=== PATIENT | male | born 1985 | race Caucasian/White ===

== ENCOUNTER 2023-07-17 15:39 | Inpatient (IN) ==
[2023-07-17] MEDS ORDERED: VANCOMYCIN HCL 1,500 MG in SODIUM CHLORIDE 0.9% 500 ML IV STA (16:08)
[2023-07-17] MEDS ORDERED: VANCOMYCIN CONSULT ACTIVE PRN (16:08)
[2023-07-17] MEDS ORDERED: SODIUM CHLORIDE 0.9% 1,000 ML IV STA (16:08)
[2023-07-17] MEDS ORDERED: CEFEPIME 2,000 MG/20 ML VIAL IV STA (16:08)
--- NOTE | 2023-07-17 16:12 | Emergency Department Note ---
Impression & Plan Infection of left hand, Abscess of hand, left, Cellulitis of hand, left ED Provider Note NAME: EMILIA ALVAREZ AGE: 38 SEX: M : 1985 ARRIVES VIA: Walk-In INFORMANT: Patient, ED PROVIDER(S): Luis Armando Ortiz DO CHIEF COMPLAINT: Hand swelling HPI: The patient is a 38-year-old male who presented to the emergency department for an evaluation of hand swelling. He had symptoms for approximately 2 weeks. He has been seen at multiple emergency departments. He has had multiple changes to his antibiotic regimen. The patient states that he was recently seen at another ER and they were trying to admit him to hospital in [place] however he was told it may take up to a week for him to get that bed so he left there and decided to come here today. He describes the swelling as between the fourth and fifth digit on the left hand. He does work with cement. Initially this started off as a callus and then ruptured and then he started having swelling and pain after this. He did have an I&D of the area yesterday. ROS: See above HPI for pertinent positives & negatives. A total of 10 systems reviewed and were otherwise negative. PAST MEDICAL HISTORY: See Below PAST SURGICAL HISTORY: See Below FAMILY HISTORY: See Below SOCIAL HISTORY: See Below HOME MEDICATIONS: See Below ALLERGIES: See Below VITALS: See Below PHYSICAL EXAMINATION: GENERAL: Patient is awake alert in no acute distress patient is resting comfortably and showing no signs of anxiety EYES: The conjunctivae are clear. The pupils are round and reactive. EARS, NOSE, MOUTH AND THROAT: The nose is without any evidence of any deformity. NECK: The neck is nontender and supple. RESPIRATORY: Normal respiratory effort is noted there is no evidence of wheezing rhonchi or rales CARDIOVASCULAR: Regular rate and rhythm noted there no murmurs rubs or gallops normal S1 normal S2. GASTROINTESTINAL: The abdomen is soft. Abdomen is nontender. MUSCULOSKELETAL/EXTREMITIES: There is no evidence of gross deformity full range of motion is noted in the hips and shoulders. SKIN: There is swelling on both the dorsum and the palmar aspect of the left hand. Range of motion of the fourth and fifth digits did appear to be limited secondary to pain. There was an area between the fourth and fifth digit that was recently incised. No drainage was noted. NEUROLOGIC: Patient is awake alert and oriented x3 MEDICAL DECISION MAKING: The patient is a 38-year-old male who presented to the emergency department for an evaluation of hand infection. The patient started having problems with swelling and redness of his hand over the course last few weeks. The patient was seen in other outside facilities no specific diagnosis was initially made but the patient was started on antibiotics. Most recently he was seen in a different facility and diagnosed with an abscess. He had an incision and drainage in the emergency department. He was scheduled to be transferred to a different facility but no bed became available so the patient left and came to our facility today. I discussed the patient's laboratory and radiographic studies with him. I also discussed his condition with the on-call [facility] ospitalist as well as the on-call orthopedic physician. They have agreed to evaluate the patient in the emergency department for further management and disposition. The patient was treated with IV antibiotics in emergency department. Triage Nursing notes reviewed. Prior medical records reviewed Vital Signs: reviewed and remarkable for elevated blood pressure. Differential diagnosis: Cellulitis, abscess, MRSA infection, DVT, necrotizing fasciitis, dermatitis, drug eruption, allergic reaction, as well as other pathologies. ER treatment provided: See below Diagnostics interpreted by me: ECG: none Cardiac Monitoring: An order was placed for continuous cardiac monitoring. The monitor shows a rate of 55 bpm with sinus bradycardia. Laboratory studies: As stated above and show below. Imaging studies: See below. Radiographic imaging was reviewed by myself Consultation(s): I discussed this case with Dr Harris who was on for orthopaedics I discussed this case with Dr Westfall who was on for the [facility] hospitalist group. Past Med/Surg History Social History Smoking Status: Current every day smoker Tobacco Type: Cigarettes Cigarettes Per Day: 1.5 pack a day.; Second Hand Exposure: No; Do You Dip or Chew Tobacco: No; Tobacco Cessation Education Requested by Patient: No Hx Alcohol Use: No Hx Substance Use: No Preferred Language: Egyptian Communication Ability: Effective Central Sterilization Technician Required: No Beliefs That Will Affect Care: None Current Living Situation: Family Current Living Situation Comment: Fiance and Kids. Other Information That Helps Us Care for You: No Feels Safe at Home: Yes Safety Concerns: Feels Safe At This Time Assistive Devices: None Allergies Allergies Allergy/AdvReac Type Severity Reaction Status Date / Time Bee Allergy Swelling Uncoded 07/17/23 16:17 of Lip/Tongue/Throat Home Meds Home Medications Medication Instructions Recorded Confirmed buprenorphine 4 mg-naloxone 1 mg 1 film sublingual . QMIDDAY 07/17/23 07/17/23 sublingual film buprenorphine 8 mg-naloxone 2 mg 1 film sublingual AMHS 07/17/23 07/17/23 sublingual film clindamycin HCl 300 mg capsule 300 mg PO TID 07/17/23 07/17/23 cyclobenzaprine 5 mg tablet 5 mg PO HS PRN Migraine Headache 07/17/23 07/17/23 doxycycline hyclate 100 mg capsule 100 mg PO BID 07/17/23 07/17/23 levofloxacin 500 mg tablet See Rx Instructions .Route .COMPLEX 07/17/23 07/17/23 pantoprazole 40 mg tablet,delayed 40 mg PO BID 07/17/23 07/17/23 release sumatriptan succinate 100 mg tablet 100 mg PO DAILY PRN Migraine 07/17/23 07/17/23 Headache topiramate 100 mg tablet 100 mg PO BID 07/17/23 07/17/23 Results & Data (ED) Vital Signs Vital Signs - 24 hr 07/17/23 15:42 07/17/23 16:55 07/17/23 18:11 Temperature 36.8 C Temperature Source Temporal Artery Scan Pulse Rate 65 82 Pulse Rate [Apical] 64 Pulse Rate from SpO2 Sensor Pulse Rhythm [Apical] Regular Respiratory Rate 16 17 Respiratory Effort / Characteristics Non-Labored Spontaneous Respiratory Depth Normal Respiratory Pattern Blood Pressure 158/88 H Blood Pressure [Right Arm] 132/83 Blood Pressure Mean 111 Blood Pressure Mean [Right Arm] 99 Blood Pressure Position [Right Arm] Semi-fowlers Pulse Oximetry 100 99 Oxygen Delivery Method Room Air Room Air Sepsis Recent Fever Within 48 Hours No Sepsis New/Unexplained Change in Mental Status N/A Sepsis Action Taken by Nursing No Action Required 07/17/23 16:54 07/17/23 17:00 07/17/23 18:05 Temperature Temperature Source Pulse Rate 70 72 68 Pulse Rate [Apical] Pulse Rate from SpO2 Sensor 70 74 67 Pulse Rhythm [Apical] Respiratory Rate 19 20 15 Respiratory Effort / Characteristics Respiratory Depth Respiratory Pattern Blood Pressure Blood Pressure [Right Arm] Blood Pressure Mean Blood Pressure Mean [Right Arm] Blood Pressure Position [Right Arm] Pulse Oximetry 100 100 99 Oxygen Delivery Method Sepsis Recent Fever Within 48 Hours Sepsis New/Unexplained Change in Mental Status Sepsis Action Taken by Nursing 07/17/23 18:13 07/17/23 18:13 07/17/23 18:16 Temperature Temperature Source Pulse Rate 68 Pulse Rate [Apical] Pulse Rate from SpO2 Sensor 66 Pulse Rhythm [Apical] Respiratory Rate 21 Respiratory Effort / Characteristics Respiratory Depth Respiratory Pattern Blood Pressure 132/83 Blood Pressure [Right Arm] Blood Pressure Mean 88 81 Blood Pressure Mean [Right Arm] Blood Pressure Position [Right Arm] Pulse Oximetry 99 Oxygen Delivery Method Sepsis Recent Fever Within 48 Hours Sepsis New/Unexplained Change in Mental Status Sepsis Action Taken by Nursing 07/17/23 18:16 07/17/23 18:30 07/17/23 18:30 Temperature Temperature Source Pulse Rate 70 60 Pulse Rate [Apical] Pulse Rate from SpO2 Sensor 71 62 Pulse Rhythm [Apical] Respiratory Rate 16 17 Respiratory Effort / Characteristics Respiratory Depth Respiratory Pattern Blood Pressure 140/93 Blood Pressure [Right Arm] Blood Pressure Mean 112 Blood Pressure Mean [Right Arm] Blood Pressure Position [Right Arm] Pulse Oximetry 100 100 Oxygen Delivery Method Sepsis Recent Fever Within 48 Hours Sepsis New/Unexplained Change in Mental Status Sepsis Action Taken by Nursing 07/17/23 18:45 07/17/23 19:00 07/17/23 20:00 Temperature Temperature Source Pulse Rate 58 L 59 L Pulse Rate [Apical] Pulse Rate from SpO2 Sensor 54 L 59 L Pulse Rhythm [Apical] Regular Respiratory Rate 16 16 Respiratory Effort / Characteristics Non-Labored Respiratory Depth Normal Respiratory Pattern Regular Blood Pressure 128/85 135/75 Blood Pressure [Right Arm] Blood Pressure Mean 99 95 Blood Pressure Mean [Right Arm] Blood Pressure Position [Right Arm] Pulse Oximetry 100 100 Oxygen Delivery Method Room Air Room Air Room Air Sepsis Recent Fever Within 48 Hours Sepsis New/Unexplained Change in Mental Status Sepsis Action Taken by Nursing 07/17/23 19:30 07/17/23 20:00 Temperature Temperature Source Pulse Rate 67 59 L Pulse Rate [Apical] Pulse Rate from SpO2 Sensor 63 60 Pulse Rhythm [Apical] Respiratory Rate 15 16 Respiratory Effort / Characteristics Respiratory Depth Respiratory Pattern Blood Pressure 145/83 H 131/80 Blood Pressure [Right Arm] Blood Pressure Mean 103 97 Blood Pressure Mean [Right Arm] Blood Pressure Position [Right Arm] Pulse Oximetry 97 99 Oxygen Delivery Method Room Air Room Air Sepsis Recent Fever Within 48 Hours Sepsis New/Unexplained Change in Mental Status Sepsis Action Taken by Half-Way Medications Current Medication List: was personally reviewed by me Laboratory Data Attestation: I reviewed the patient's lab results. 07/17/23 16:24 07/17/23 16:24 Lab Results 07/17/23 07/17/23 07/17/23 Range/Units 16:24 16:24 16:24 WBC 18.73 H (4.8-10.8) K/ul RBC 4.39 L (4.70-6.10) M/uL Hgb 13.9 L (14.0-18.0) g/dl Hct 39.8 L (42.0-52.0) % MCV 90.7 (80.0-100.0) fL MCH 31.7 (25.0-34.0) pg MCHC 34.9 (32.0-36.0) g/dL RDW Std Deviation 43.8 (36.4-46.3) fL RDW Coeff of Yadira 13.2 (11.5-14.5) % Plt Count 439 H (130-400) K/uL MPV 9.3 L (9.4-12.4) fL Immature Gran % (Auto) 0.3 % Neut % (Auto) 56.7 % Lymph % (Auto) 33.7 % Schoolcraft % (Auto) 6.9 % Eos % (Auto) 2.0 % Baso % (Auto) 0.4 % Neut # (Auto) 10.62 H (1.40-6.50) K/uL Lymph # (Auto) 6.31 H (1.20-3.40) K/uL Schoolcraft # (Auto) 1.30 H (0.11-0.59) K/uL Eos # (Auto) 0.37 (0.00-0.50) K/uL Baso # (Auto) 0.08 (0.00-0.20) K/uL Immature Gran # (Auto) 0.05 (0.01-0.20) K/uL ESR 44 H (0-15) mm/hr Sodium 139 (136-145) mmol/L Potassium 3.5 (3.5-5.1) mmol/L Chloride 106 (98-107) mmol/L Carbon Dioxide 28 (21-32) mmol/L Anion Gap 5 (3-11) BUN 9 (6-23) mg/dl Creatinine 0.82 (0.6-1.4) mg/dl Est Cr Clr Drug Dosing 99.4 ml/min Est GFR ( Amer) 129.1 ml/min Est GFR (Non-Af Amer) 111.4 ml/min BUN/Creatinine Ratio 11.0 (10-20) Glucose 90 (70-99(Fasting)) mg/dl Lactate (0.4-2.0) mmol/L Calcium 9.7 (8.6-10.3) mg/dl Total Bilirubin 0.4 (0.2-1.0) mg/dl AST 25 (13-39) U/L ALT 19 (7-52) U/L Alkaline Phosphatase 97 (34-104) U/L C-Reactive Protein 8.38 H (0-0.5) mg/dl Total Protein 7.7 (6.0-8.3) gm/dl Albumin 4.2 (3.4-5.0) gm/dl Globulin 3.5 (2.5-4.0) gm/dl Albumin/Globulin Ratio 1.2 (0.9-2) Procalcitonin (0-0.5) ng/ml 07/17/23 07/17/23 Range/Units 16:24 16:24 WBC (4.8-10.8) K/ul RBC (4.70-6.10) M/uL Hgb (14.0-18.0) g/dl Hct (42.0-52.0) % MCV (80.0-100.0) fL MCH (25.0-34.0) pg MCHC (32.0-36.0) g/dL RDW Std Deviation (36.4-46.3) fL RDW Coeff of Yadira (11.5-14.5) % Plt Count (130-400) K/uL MPV (9.4-12.4) fL Immature Gran % (Auto) % Neut % (Auto) % Lymph % (Auto) % School[place] % (Auto) % Eos % (Auto) % Baso % (Auto) % Neut # (Auto) (1.40-6.50) K/uL Lymph # (Auto) (1.20-3.40) K/uL Schoolcraft # (Auto) (0.11-0.59) K/uL Eos # (Auto) (0.00-0.50) K/uL Baso # (Auto) (0.00-0.20) K/uL Immature Gran # (Auto) (0.01-0.20) K/uL ESR (0-15) mm/hr Sodium (136-145) mmol/L Potassium (3.5-5.1) mmol/L Chloride (98-107) mmol/L Carbon Dioxide (21-32) mmol/L Anion Gap (3-11) BUN (6-23) mg/dl Creatinine (0.6-1.4) mg/dl Est Cr Clr Drug Dosing ml/min Est GFR ( Amer) ml/min Est GFR (Non-Af Amer) ml/min BUN/Creatinine Ratio (10-20) Glucose (70-99(Fasting)) mg/dl Lactate 1.1 (0.4-2.0) mmol/L Calcium (8.6-10.3) mg/dl Total Bilirubin (0.2-1.0) mg/dl AST (13-39) U/L ALT (7-52) U/L Alkaline Phosphatase (34-104) U/L C-Reactive Protein (0-0.5) mg/dl Total Protein (6.0-8.3) gm/dl Albumin (3.4-5.0) gm/dl Globulin (2.5-4.0) gm/dl Albumin/Globulin Ratio (0.9-2) Procalcitonin < 0.05 (0-0.5) ng/ml Administered Medications Buprenorphine/Naloxone (Buprenorphine/Naloxone 8/2 Mg Tab) 1 tab SL [facility]HS PETER Stop: 08/16/23 21:30 Last Admin: 07/17/23 22:04 Dose: 1 tab Documented By: JAMIE Sodium Chloride (Nss) 1,000 mls @ 125 mls/hr IV .Q8H PETER Stop: 08/16/23 21:30 Last Admin: 07/18/23 04:58 Dose: 125 mls/hr Documented By: Infusion: 07/18/23 04:58 Dose: 125 mls/hr Documented By: Admin: 07/17/23 21:31 Dose: 125 mls/hr Documented By: JAMIE Piperacillin Sod/Tazobactam (Sod 4.5 gm/ Dextrose) 100 mls @ 25 mls/hr IV Q8H [facility]; Protocol Stop: 07/25/23 03:59 Last Admin: 07/18/23 04:58 Dose: 25 mls/hr Documented By: JAMIE Vancomycin HCl 1,000 mg/ (Sodium Chloride) 270 mls @ 200 mls/hr IV Q12H PETER Stop: 07/20/23 05:59 Last Admin: 07/18/23 05:44 Dose: 200 mls/hr Documented By: JAMIE Ketorolac Tromethamine (Ketorolac Tromethamine 15 Mg/Ml Vial) 15 mg IV Q6H PRN PRN Reason: Pain Stop: 07/22/23 21:47 Last Admin: 07/18/23 04:59 Dose: 15 mg Documented By: Admin: 07/17/23 22:06 Dose: 15 mg Documented By: JAMIE Pantoprazole Sodium (Pantoprazole 40 Mg Tab) 40 mg PO BID PETER Stop: 08/16/23 21:30 Last Admin: 07/17/23 22:04 Dose: 40 mg Documented By: JAMIE Topiramate (Topiramate 100 Mg Tab) 100 mg PO BID PETER Stop: 08/16/23 21:30 Last Admin: 07/17/23 22:04 Dose: 100 mg Documented By: JAMIE Discontinued Medications Gadobutrol (Gadobutrol 65ml Vial) 5.8 ml IV ONCE ONE Stop: 07/17/23 17:47 Last Admin: 07/17/23 17:47 Dose: 5.8 ml Documented By: ADELE Vancomycin HCl 1,500 mg/ (Sodium Chloride) 530 mls @ 200 mls/hr IV NOW STA Stop: 07/17/23 18:46 Last Infusion: 07/17/23 20:44 Dose: 0 mls/hr Documented By: Admin: 07/17/23 18:04 Dose: 200 mls/hr Documented By: DARLENE Sodium Chloride (Nss) 1,000 mls @ 999 mls/hr IV .Q1H1M STA Stop: 07/17/23 17:08 Last Infusion: 07/17/23 17:37 Dose: 0 mls/hr Documented By: Admin: 07/17/23 16:24 Dose: 999 mls/hr Documented By: DARLENE Cefepime HCl (Maxipime) 2,000 mg in 20 mls @ 5 mls/min IV NOW STA; Protocol Stop: 07/17/23 16:11 Last Admin: 07/17/23 16:26 Dose: 5 mls/min Documented By: DARLENE Piperacillin Sod/Tazobactam (Sod 4.5 gm/ Dextrose) 100 mls @ 200 mls/hr IV NOW ONE; Protocol Stop: 07/17/23 22:44 Last Infusion: 07/17/23 22:57 Dose: 0 mls/hr Documented By: Admin: 07/17/23 22:25 Dose: 200 mls/hr Documented By: JAMIE Imaging Data Radiologist's Impression: Hand MRI 07/17/23 16:08 MRI OF THE LEFT HAND WITH AND WITHOUT CONTRAST CLINICAL HISTORY: Left hand swelling. Cellulitis. Recent I&D. COMPARISON STUDY: No previous studies for comparison. TECHNIQUE: Utilizing a 1.5 Maria Isabel magnet and dedicated coil, multiplanar, multiecho imaging of the left hand was performed pre and postcontrast administration. Intravenous injection of 5.8 cc of Gadavist was uneventful. FINDINGS: A marker was placed on the skin at site of pain and swelling. There is no marrow edema to suggest osteomyelitis within the left hand. Note is made of extensive dorsal hand subcutaneous edema and enhancement. This extends into the left third, fourth and fifth fingers consistent with cellulitis. Note is made of a elongated subcutaneous pocket of fluid with rim enhancement along the palmar aspects of the bases of the left third, fourth and fifth fingers. This collection measures 4 x 0.8 x 0.7 cm. A small component extends along the medial proximal left fourth finger. This component measures 1.5 x 0.3 cm. No additional fluid collections are present. No increased fluid within the tendon sheaths is noted. IMPRESSION: 1. Extensive subcutaneous edema of the dorsal left hand extending into the left third, fourth and fifth fingers consistent with cellulitis. No MR evidence for acute osteomyelitis within the left hand. 2. Elongated subcutaneous rim enhancing fluid collection along the palmar a spects of the bases of the left third, fourth and fifth fingers which measures 4 x 0.8 x 0.7 cm. Sterility cannot be assessed by MRI however this favors an abscess. Alternately, this could reflect recent I&D site. Correlation with procedural history is recommended. ACT 112: Negative or not required by law. Electronically signed by: Vincent Chan M.D. 07/17/2023 6:46 PM Orbit X-Ray 07/17/23 16:19 [facility] RADIOGRAPHS 3 VIEWS HISTORY: pre-MRI screening. COMPARISON: None. FINDINGS: There are no radiopaque foreign bodies identified within the orbits. IMPRESSION: No radiopaque foreign bodies identified within the orbits. ACT 112: Negative or not required by law. Electronically signed by: Vincent Chan M.D. 07/17/2023 5:01 PM Discharge Plan Visit Data Chief Complaint: Infection Stated Complaint: CELLULITIS LEFT HAND ED Provider: Luis Armando Ortiz Discharge Problem: Infection of left hand, Abscess of hand, left, Cellulitis of hand, left Patient Disposition: Admitted As Inpatient Discharge Instructions Interventions: ED Discharge Assessment Last Done: 07/17/23 21:13
[2023-07-17 16:42] LABS: Hematocrit (blood only) 39.8 % (42.0-52.0); Hemoglobin 13.9 g/dl (14.0-18.0); Mean Corpuscular Hemoglobin 31.7 pg (25.0-34.0); Mean Corpuscular Hgb Conc 34.9 g/dL (32.0-36.0); Mean Corpuscular Volume 90.7 fL (80.0-100.0); Mean Platelet Volume 9.3 fL (9.4-12.4); Platelet Count 439 K/uL (130-400); RDW Coefficient of Variation 13.2 % (11.5-14.5); RDW Standard Deviation 43.8 fL (36.4-46.3); Red Blood Count 4.39 M/uL (4.70-6.10); White Blood Count 18.73 K/ul (4.8-10.8)
[2023-07-17 16:58] LABS: Albumin Globulin Ratio 1.2 (0.9-2); Albumin Level 4.2 gm/dl (3.4-5.0); Bilirubin,Total 0.4 mg/dl (0.2-1.0); C Reactive Protein 8.38 mg/dl (0-0.5); Calcium 9.7 mg/dl (8.6-10.3); Creatinine Clr Calc Pharmacy 99.4 ml/min; Est GFR (African American) 129.1 ml/min; Est GFR (Non-African American) 111.4 ml/min; Globulin 3.5 gm/dl (2.5-4.0); Potassium 3.5 mmol/L (3.5-5.1); Total Protein 7.7 gm/dl (6.0-8.3)
--- NOTE | 2023-07-17 17:02 | XRay Report ---
[facility] RADIOGRAPHS 3 VIEWS HISTORY: pre-MRI screening. COMPARISON: None. FINDINGS: There are no radiopaque foreign bodies identified within the orbits. IMPRESSION: No radiopaque foreign bodies identified within the orbits. ACT 112: Negative or not required by law. Electronically signed by: Vincent Chan M.D. 07/17/2023 5:01 PM
[2023-07-17 17:04] LABS: Basophils # (auto) 0.08 K/uL (0.00-0.20); Basophils % (auto) 0.4 %; Eosinophils # (auto) 0.37 K/uL (0.00-0.50); Immature Granulocytes # (auto) 0.05 K/uL (0.01-0.20); Immature Granulocytes % (auto) 0.3 %; Lymphocytes # (auto) 6.31 K/uL (1.20-3.40); Lymphocytes % (auto) 33.7 %; Monocytes % (auto) 6.9 %; Neutrophils # (auto) 10.62 K/uL (1.40-6.50); Neutrophils % (auto) 56.7 %
[2023-07-17] MEDS ORDERED: GADOBUTROL 65ML VIAL IV ONE (17:46)
--- NOTE | 2023-07-17 18:49 | Magnetic Resonance Report ---
MRI OF THE LEFT HAND WITH AND WITHOUT CONTRAST CLINICAL HISTORY: Left hand swelling. Cellulitis. Recent I&D. COMPARISON STUDY: No previous studies for comparison. TECHNIQUE: Utilizing a 1.5 Maria Isabel magnet and dedicated coil, multiplanar, multiecho imaging of the lef t hand was performed pre and postcontrast administration. Intravenous injection of 5.8 cc of Gadavist was uneventful. FINDINGS: A marker was placed on the skin at site of pain and swelling. There is no marrow edema to s uggest osteomyelitis within the left hand. Note is made of extensive dorsal hand subcutaneous edema a nd enhancement. This extends into the left third, fourth and fifth fingers consistent with cellulitis . Note is made of a elongated subcutaneous pocket of fluid with rim enhancement along the palmar aspe cts of the bases of the left third, fourth and fifth fingers. This collection measures 4 x 0.8 x 0.7 cm. A small component extends along the medial proximal left fourth finger. This component measures 1 .5 x 0.3 cm. No additional fluid collections are present. No increased fluid within the tendon sheath s is noted. IMPRESSION: 1. Extensive subcutaneous edema of the dorsal left hand extending into the left third, fourth and fif th fingers consistent with cellulitis. No MR evidence for acute osteomyelitis within the left hand. 2. Elongated subcutaneous rim enhancing fluid collection along the palmar aspects of the bases of the left third, fourth and fifth fingers which measures 4 x 0.8 x 0.7 cm. Sterility cannot be assessed b y MRI however this favors an abscess. Alternately, this could reflect recent I&D site. Correlation wi procedural history is recommended. ACT 112: Negative or not required by law. Electronically signed by: Vincent Chan M.D. 07/17/2023 6:46 PM
--- NOTE | 2023-07-17 20:26 | History & Physical Report ---
Date of Service July 17, 2023 Assessment & Plan (1) Infection of left hand: Plan: 38-year-old male with past med significant for migraines, presents with left hand infection. Left hand infection Between ring and middle finger Failed outpatient treatment with the oral antibiotics Was lanced in outside hospital yesterday Empirically placed on IV Vanco and Zosyn IV fluids N.p.o. after midnight Consult Ortho in a.m. Migraines Continue home medications GERD Protonix Chronic pain Continue Suboxone DVT prophylaxis SCDs for now Disposition Medical floor Full code History of Present Illness Chief Complaint: Left hand infection Primary Care Provider: NO PCP 38-year-old male with past med significant for migraines, presents with left hand infection. Patient states 11 days ago at work his callus in his left hand between ring and little finger started to bleed. 3 days later he went to outpatient doctor and was prescribed Bactrim and advised to go to hospital if does not improve in 48 hours. It was not getting better and he went to ER and was prescribed different antibiotics and was advised the same. As he was not getting better he went to [facility] day before yesterday and prescribed clindamycin and a different antibiotic but by the next day which is yesterday the hand is swollen and painful so went to the same hospital last night and the wound was sliced and IV antibiotics and fluids were given. As there were no beds in the hospital he was advised to wait and see or go to a different hospital and he came to our hospital today. There is some slight drainage from the I&D site. Denies any fevers. Resting comfortably and hemodynamically stable. Denies any chest pain or shortness of breath. No headaches. No blurred visions. No earache or runny nose or sore throat. No cough. Appetite is okay. No nausea. Normal bowel and bladder movements. No hematuria or blood in the stools. Past medical history as mentioned above Past surgical history none as per patient Social history. Smokes 1 and half pack a day for about 20 years. Denies alcohol use. Used to take pain pills in the past currently on Suboxone. Family history. Mother had diabetes Allergies Allergy/AdvReac Type Severity Reaction Status Date / Time Bee Allergy Swelling Uncoded 07/17/23 16:17 of Lip/Tongue/Throat Home Medications Medication Instructions Recorded Confirmed Type buprenorphine 4 mg-naloxone 1 mg 1 film sublingual . QMIDDAY 07/17/23 07/17/23 History sublingual film buprenorphine 8 mg-naloxone 2 mg 1 film sublingual AMHS 07/17/23 07/17/23 History sublingual film clindamycin HCl 300 mg capsule 300 mg PO TID 07/17/23 07/17/23 History cyclobenzaprine 5 mg tablet 5 mg PO HS PRN Migraine Headache 07/17/23 07/17/23 History doxycycline hyclate 100 mg capsule 100 mg PO BID 07/17/23 07/17/23 History levofloxacin 500 mg tablet See Rx Instructions .Route .COMPLEX 07/17/23 07/17/23 History pantoprazole 40 mg tablet,delayed 40 mg PO BID 07/17/23 07/17/23 History release sumatriptan succinate 100 mg tablet 100 mg PO DAILY PRN Migraine 07/17/23 07/17/23 History Headache topiramate 100 mg tablet 100 mg PO BID 07/17/23 07/17/23 History Past Med/Surg History Social History Smoking Status: Current every day smoker Tobacco Type: Cigarettes Cigarettes Per Day: 1.5 pack a day.; Second Hand Exposure: No; Do You Dip or Chew Tobacco: No; Tobacco Cessation Education Requested by Patient: No Hx Alcohol Use: No Hx Substance Use: No Preferred Language: Greek Communication Ability: Effective Student Advisor Required: No Beliefs That Will Affect Care: None Current Living Situation: Family Current Living Situation Comment: Fiance and Kids. Other Information That Helps Us Care for You: No Feels Safe at Home: Yes Safety Concerns: Feels Safe At This Time Assistive Devices: None Review of Systems Review of Systems: All systems reviewed & are unremarkable except as noted in HPI & below Physical Exam Physical Exam: General- Not in distress Head- atraumatic Eyes- PERRL. ENT- oropharynx clear Neck- supple, no JVD. Lungs- clear to auscultation, No wheezing or crackles Heart- regular rate and rhythm; no murmur, no gallop. Abdomen- normal bowel sounds, soft, nontender, no distension. Extremities- no pretibial edema, seling and open wound with mild serosanguineous drainage seen between left third and little finger Neuro- alert, oriented x 3; PERRL,; no facial palsy; no dysarthria;Non focal. Skin- warm & dry Results & Data Results & Data Vital Signs (Past 12 Hours) Vital Signs Temp Pulse Pulse Resp BP BP Pulse Ox 07/17/23 19:00 59 L 16 135/75 100 07/17/23 18:45 58 L 16 128/85 100 07/17/23 18:30 60 17 100 07/17/23 18:30 140/93 07/17/23 18:16 70 16 100 07/17/23 18:13 68 21 99 07/17/23 18:13 132/83 07/17/23 18:05 68 15 99 07/17/23 17:00 72 20 100 07/17/23 16:54 70 19 100 07/17/23 18:11 64 17 132/83 99 07/17/23 16:55 82 07/17/23 15:42 36.8 C 65 16 158/88 H 100 O2 Del Method 07/17/23 19:00 Room Air 07/17/23 18:45 Room Air 07/17/23 18:30 07/17/23 18:30 07/17/23 18:16 07/17/23 18:13 07/17/23 18:13 07/17/23 18:05 07/17/23 17:00 07/17/23 16:54 07/17/23 18:11 Room Air 07/17/23 16:55 07/17/23 15:42 Room Air Diagnostic Findings Laboratory Results WBC 18.73 K/ul (4.8-10.8) H 07/17/23 16:24 RBC 4.39 M/uL (4.70-6.10) L 07/17/23 16:24 Hgb 13.9 g/dl (14.0-18.0) L 07/17/23 16:24 Hct 39.8 % (42.0-52.0) L 07/17/23 16:24 MCV 90.7 fL (80.0-100.0) 07/17/23 16:24 MCH 31.7 pg (25.0-34.0) 07/17/23 16:24 MCHC 34.9 g/dL (32.0-36.0) 07/17/23 16:24 RDW Std Deviation 43.8 fL (36.4-46.3) 07/17/23 16:24 RDW Coeff of Yadira 13.2 % (11.5-14.5) 07/17/23 16:24 Plt Count 439 K/uL (130-400) H 07/17/23 16:24 MPV 9.3 fL (9.4-12.4) L 07/17/23 16:24 Immature Gran % (Auto) 0.3 % 07/17/23 16:24 Neut % (Auto) 56.7 % 07/17/23 16:24 Lymph % (Auto) 33.7 % 07/17/23 16:24 [place] % (Auto) 6.9 % 07/17/23 16:24 Eos % (Auto) 2.0 % 07/17/23 16:24 Baso % (Auto) 0.4 % 07/17/23 16:24 Neut # (Auto) 10.62 K/uL (1.40-6.50) H 07/17/23 16:24 Lymph # (Auto) 6.31 K/uL (1.20-3.40) H 07/17/23 16:24 [place] # (Auto) 1.30 K/uL (0.11-0.59) H 07/17/23 16:24 Eos # (Auto) 0.37 K/uL (0.00-0.50) 07/17/23 16:24 Baso # (Auto) 0.08 K/uL (0.00-0.20) 07/17/23 16:24 Immature Gran # (Auto) 0.05 K/uL (0.01-0.20) 07/17/23 16:24 ESR 44 mm/hr (0-15) H 07/17/23 16:24 Sodium 139 mmol/L (136-145) 07/17/23 16:24 Potassium 3.5 mmol/L (3.5-5.1) 07/17/23 16:24 Chloride 106 mmol/L (98-107) 07/17/23 16:24 Carbon Dioxide 28 mmol/L (21-32) 07/17/23 16:24 Anion Gap 5 (3-11) 07/17/23 16:24 BUN 9 mg/dl (6-23) 07/17/23 16:24 Creatinine 0.82 mg/dl (0.6-1.4) 07/17/23 16:24 Est Cr Clr Drug Dosing 99.4 ml/min 07/17/23 16:24 Est GFR ( Amer) 129.1 ml/min 07/17/23 16:24 Est GFR (Non-Af Amer) 111.4 ml/min 07/17/23 16:24 BUN/Creatinine Ratio 11.0 (10-20) 07/17/23 16:24 Glucose 90 mg/dl (70-99(Fasting)) 07/17/23 16:24 Lactate 1.1 mmol/L (0.4-2.0) 07/17/23 16:24 Calcium 9.7 mg/dl (8.6-10.3) 07/17/23 16:24 Total Bilirubin 0.4 mg/dl (0.2-1.0) 07/17/23 16:24 AST 25 U/L (13-39) 07/17/23 16:24 ALT 19 U/L (7-52) 07/17/23 16:24 Alkaline Phosphatase 97 U/L (34-104) 07/17/23 16:24 C-Reactive Protein 8.38 mg/dl (0-0.5) H 07/17/23 16:24 Total Protein 7.7 gm/dl (6.0-8.3) 07/17/23 16:24 Albumin 4.2 gm/dl (3.4-5.0) 07/17/23 16:24 Globulin 3.5 gm/dl (2.5-4.0) 07/17/23 16:24 Albumin/Globulin Ratio 1.2 (0.9-2) 07/17/23 16:24 Procalcitonin < 0.05 ng/ml (0-0.5) 07/17/23 16:24 Impressions Hand MRI 07/17/23 16:08 MRI OF THE LEFT HAND WITH AND WITHOUT CONTRAST CLINICAL HISTORY: Left hand swelling. Cellulitis. Recent I&D. COMPARISON STUDY: No previous studies for comparison. TECHNIQUE: Utilizing a 1.5 Maria Isabel magnet and dedicated coil, multiplanar, multiecho imaging of the left hand was performed pre and postcontrast administration. Intravenous injection of 5.8 cc of Gadavist was uneventful. FINDINGS: A marker was placed on the skin at site of pain and swelling. There is no marrow edema to suggest osteomyelitis within the left hand. Note is made of extensive dorsal hand subcutaneous edema and enhancement. This extends into the left third, fourth and fifth fingers consistent with cellulitis. Note is made of a elongated subcutaneous pocket of fluid with rim enhancement along the palmar aspects of the bases of the left third, fourth and fifth fingers. This collection measures 4 x 0.8 x 0.7 cm. A small component extends along the medial proximal left fourth finger. This component measures 1.5 x 0.3 cm. No additional fluid collections are present. No increased fluid within the tendon sheaths is noted. IMPRESSION: 1. Extensive subcutaneous edema of the dorsal left hand extending into the left third, fourth and fifth fingers consistent with cellulitis. No MR evidence for acute osteomyelitis within the left hand. 2. Elongated subcutaneous rim enhancing fluid collection along the palmar aspects of the bases of the left third, fourth and fifth fingers which measures 4 x 0.8 x 0.7 cm. Sterility cannot be assessed by MRI however this favors an abscess. Alternately, this could reflect recent I&D site. Correlation with procedural history is recommended. ACT 112: Negative or not required by law. Electronically signed by: Vincent Chan M.D. 07/17/2023 6:46 PM Orbit X-Ray 07/17/23 16:19 [facility] RADIOGRAPHS 3 VIEWS HISTORY: pre-MRI screening. COMPARISON: None. FINDINGS: There are no radiopaque foreign bodies identified within the orbits. IMPRESSION: No radiopaque foreign bodies identified within the orbits. ACT 112: Negative or not required by law. Electronically signed by: Vincent Chan M.D. 07/17/2023 5:01 PM Code Status & VTE Plan VTE Prophylaxis Plan VTE Prophylaxis will be ordered: Yes
[2023-07-17] MEDS ORDERED: POLYETHYLENE (MIRALAX) 17 GM PACK PO PRN (21:31)
[2023-07-17] MEDS ORDERED: SUMAtriptan succinate 100 MG TAB PO PRN (21:31)
[2023-07-17] MEDS ORDERED: CYCLOBENZAPRINE HCL 5 MG TAB PO PRN (21:31)
[2023-07-17] MEDS: SODIUM CHLORIDE 0.9% 1,000 ML IV SCH (21:31)
[2023-07-17] MEDS ORDERED: HYDROmorphone INJ 0.5 MG/0.5 ML SYR IV PRN (21:31)
[2023-07-17] MEDS: BUPRENORPHINE/NALOXONE 8/2 MG TAB SL SCH (22:04)
[2023-07-17] MEDS: TOPIRAMATE 100 MG TAB PO SCH (22:04)
[2023-07-17] MEDS: PANTOprazole 40 MG TAB PO SCH (22:04)
[2023-07-17] MEDS: KETOROLAC TROMETHAMINE 15 MG/ML VIAL IV PRN (22:06)
[2023-07-17] MEDS ORDERED: PIPER/TAZO 4.5g in D5W MINI-B 100 ML IV ONE (22:15)
[2023-07-18] MEDS: PIPERACILLIN/TAZOBACTAM 4.5 GM in DEXTROSE 5% MINI-B 100 ML IV SCH ×3 (04:58→19:54)
[2023-07-18] MEDS: SODIUM CHLORIDE 0.9% 1,000 ML IV SCH ×3 (04:58→23:55)
[2023-07-18] MEDS: KETOROLAC TROMETHAMINE 15 MG/ML VIAL IV PRN ×2 (04:59→19:41)
[2023-07-18 05:59] LABS: Basophils # (auto) 0.07 K/uL (0.00-0.20); Basophils % (auto) 0.5 %; Eosinophils # (auto) 0.44 K/uL (0.00-0.50); Hematocrit (blood only) 34.7 % (42.0-52.0); Hemoglobin 11.9 g/dl (14.0-18.0); Immature Granulocytes # (auto) 0.06 K/uL (0.01-0.20); Immature Granulocytes % (auto) 0.4 %; Lymphocytes # (auto) 4.26 K/uL (1.20-3.40); Lymphocytes % (auto) 28.6 %; Mean Corpuscular Hemoglobin 31.6 pg (25.0-34.0); Mean Corpuscular Hgb Conc 34.3 g/dL (32.0-36.0); Mean Platelet Volume 9.6 fL (9.4-12.4); Monocytes # (auto) 0.93 K/uL (0.11-0.59); Monocytes % (auto) 6.2 %; Neutrophils # (auto) 9.14 K/uL (1.40-6.50); Neutrophils % (auto) 61.3 %; Platelet Count 370 K/uL (130-400); RDW Coefficient of Variation 13.4 % (11.5-14.5); RDW Standard Deviation 45.3 fL (36.4-46.3); Red Blood Count 3.77 M/uL (4.70-6.10)
[2023-07-18] MEDS ORDERED: VANCOMYCIN HCL 1,000 MG in SODIUM CHLORIDE 0.9% 250 ML IV SCH (06:00)
[2023-07-18 06:06] LABS: BUN Creatinine Ratio 11.3 (10-20); Calcium 8.7 mg/dl (8.6-10.3); Creatinine Clr Calc Pharmacy 119.5 ml/min; Est GFR (Non-African American) 118.2 ml/min; Magnesium 2.1 mg/dl (1.7-2.4); Potassium 3.9 mmol/L (3.5-5.1)
[2023-07-18] MEDS: BUPRENORPHINE/NALOXONE 8/2 MG TAB SL SCH ×2 (08:34→19:57)
[2023-07-18] MEDS: PANTOprazole 40 MG TAB PO SCH ×2 (08:34→19:54)
[2023-07-18] MEDS: TOPIRAMATE 100 MG TAB PO SCH ×2 (08:34→19:54)
--- NOTE | 2023-07-18 09:58 | Anesthesiology Consultation ---
Date of Service July 18, 2023 Assessment & Plan Chart Review Chart Review: entry clerk initiated History Surgery Operation Date: 07/18/23 11:30 Proposed Procedures p Left Hand Abscess Incision and Drainage - Canelo Bean M.D. Height/Weight Height: 5 ft 8 in Weight: 60.5 kg Allergies Allergy/AdvReac Type Severity Reaction Status Date / Time Bee Allergy Swelling Uncoded 07/17/23 16:17 of Lip/Tongue/Throat Medications Home Medications Medication Instructions Recorded Confirmed Last Taken buprenorphine 4 mg-naloxone 1 mg 1 film sublingual . QMIDDAY 07/17/23 07/17/23 07/17/23 sublingual film buprenorphine 8 mg-naloxone 2 mg 1 film sublingual AMHS 07/17/23 07/17/23 07/17/23 sublingual film clindamycin HCl 300 mg capsule 300 mg PO TID 07/17/23 07/17/23 07/17/23 cyclobenzaprine 5 mg tablet 5 mg PO HS PRN Migraine Headache 07/17/23 07/17/23 Unknown doxycycline hyclate 100 mg capsule 100 mg PO BID 07/17/23 07/17/23 07/17/23 levofloxacin 500 mg tablet See Rx Instructions .Route .COMPLEX 07/17/23 07/17/23 07/17/23 pantoprazole 40 mg tablet,delayed 40 mg PO BID 07/17/23 07/17/23 07/17/23 release sumatriptan succinate 100 mg tablet 100 mg PO DAILY PRN Migraine 07/17/23 07/17/23 Unknown Headache topiramate 100 mg tablet 100 mg PO BID 07/17/23 07/17/23 07/17/23 Active Medications Generic Name Dose Route Start Last Admin Trade Name Freq PRN Reason Stop Dose Admin Buprenorphine/Naloxone 1 tab 07/17/23 21:31 07/18/23 08:34 Buprenorphine/Naloxone 8/2 Mg Tab SL 08/16/23 21:30 1 tab AMHS PETER Administration Sodium Chloride 1,000 mls @ 125 mls/hr 07/17/23 21:31 07/18/23 04:58 Nss IV 08/16/23 21:30 125 mls/hr .Q8H PETER Administration Piperacillin Sod/Tazobactam 100 mls @ 25 mls/hr 07/18/23 04:00 07/18/23 08:58 Sod 4.5 gm/ Dextrose IV 07/25/23 03:59 Infused Q8H PETER Infusion Protocol Ketorolac Tromethamine 15 mg 07/17/23 21:48 07/18/23 04:59 Ketorolac Tromethamine 15 Mg/Ml Vial IV 07/22/23 21:47 15 mg Q6H PRN Administration Pain Pantoprazole Sodium 40 mg 07/17/23 21:31 07/18/23 08:34 Pantoprazole 40 Mg Tab PO 08/16/23 21:30 40 mg BID PETER Administration Topiramate 100 mg 07/17/23 21:31 07/18/23 08:34 Topiramate 100 Mg Tab PO 08/16/23 21:30 100 mg BID PETER Administration Social History Smoking Status: Current every day smoker Smoking cigarettes per day: 1.5 pack a day. Do You Dip or Chew Tobacco: No Hx Alcohol Use: No Hx Substance Use: No Physical Exam Vital Signs Last Vital Signs Temp 98.1 F 07/18/23 07:03 Pulse 59 L 07/18/23 07:03 Resp 17 07/18/23 07:03 BP 120/66 07/18/23 07:03 Pulse Ox 99 07/18/23 07:03 O2 Del Method Room Air 07/18/23 07:03 Testing Laboratory Results 07/18/23 05:26 07/18/23 05:26
--- NOTE | 2023-07-18 10:14 | Pharmacy Report ---
Pharmacy PK ABX Note - Date of Service July 18, 2023 - Assessment and Plan Assessment 38 year old M receiving vancomycin/Zosyn for treatment of SST--hand infection (failed multiple outpatient antibiotics). Had an I&D of the area at an outside hospital. Pertinent microbiologic data includes: blood cultures pending. Day # 1 of antimicrobial therapy. Plan Vancomycin * Loading dose: 1500 mg IV x 1 * Maintenance dose: 1250 mg IV every 12 hours-- dose increased from vancomycin 1000mg Q12H to achieve slightly higher AUC/ED * Regimen is predicted to achieve target AUC/ED of 400-600 mg/L.hr * Random level ordered for: 07/20/23 with AM labs Pharmacy will continue to follow and will adjust dose/frequency as necessary. Thank you. Pharmacy has transitioned to AUC monitoring for vancomycin. AUC/ED is the preferred PK/PD target and is associated with decreased risk of nephrotoxicity compared to traditional trough targets.
[2023-07-18] MEDS: BUPRENORPHINE/NALOXONE 2/0.5MG 1 TAB SL SCH (13:52)
[2023-07-18] MEDS ORDERED: BUPIVACAINE 0.5 % 5 MG/1 ML MPF 30ML VIAL ONE (14:34)
[2023-07-18] MEDS ORDERED: LIDOCAINE 1% LOCAL 20 ML VIAL ONE (14:34)
--- NOTE | 2023-07-18 15:11 | Hospitalist Progress Note ---
Date of Service July 18, 2023 Assessment & Plan (1) Infection of left hand: Plan: 38-year-old male with past med significant for migraines, presents with left hand infection with wound between left fourth and fifth fingers. Has been on Bactrim, Doxy, Levaquin, clindamycin as an outpatient. S/p I&D on 07/16 at OSH. On IV Vanco and Zosyn (day 2) Left hand MRI - Extensive subcutaneous edema of the dorsal left hand extending into the left third, fourth and fifth fingers consistent with cellulitis. No MR evidence for acute osteomyelitis within the left hand. Elongated subcutaneous rim enhancing fluid collection along the palmar aspects of the bases of the left third, fourth and fifth fingers which measures 4 x 0.8 x 0.7 cm. Sterility cannot be assessed by MRI however this favors an abscess. Alternately, this could reflect recent I&D site. Correlation with procedural history is recommended. Ortho consult, awaiting recommendations Migraines Chronic, stable Continue home medications GERD Chronic, stable Continue PPI Chronic pain Continue Suboxone DVT prophylaxis SCDs for now Patient seen in collaboration with Dr. Mcwilliams. Admission and Anticipated Discharge Date Admission Date: July 17, 2023 Supervising Physician Co-Signing Physician Notes Pt seen and examined by me, care coordinated w/ L. AANIS Peña , pls refer to her note above for further detail. Pt is currently sitting up in bed, in NAD. Overall says he feels ok, without any fever, chills, chest pain, shortness of breath, abd. pain., n or v. Reports his hand feels better since the incision was made in OSH ED. says now he can move his fingers better He is alert oriented, answering appropriately. Heart sounds regular, lung sounds clear to auscultation, abdomen soft, nontender, nondistended. Moving extremities. Left hand w/ edema, incision between 5th and 4th finger. Continue broad spectrum antibiotic. Orthopedics consulted - awaiting recommendations. MD Joana Subjective Follow-up for left hand infection, abscess. Patient seen and examined. Reports slight improvement in left hand swelling since starting IV antibiotics. Remains afebrile, VSS. Awaiting Ortho consult. Review of Systems Review of Systems: All systems reviewed & are unremarkable except as noted in Subjective Physical Exam Constitutional: WD/WN, vitals as above no acute distress Respiratory: normal respiratory effort, lungs clear to auscultation Cardiovascular: Rate/Rhythm: regular rate and regular rhythm Vessels: normal peripheral pulses Extremities: no edema Gastrointestinal (Abdomen): Percussion/Palpation: abdomen soft; abdomen nontender Skin: no rashes, warm and dry +edema to left hand, wound noted between left 4th and 5th fingers, mild surrounding erythema, no drainage noted Neurologic: no focal motor deficits Psychiatric: A+Ox3, euthymic affect Results & Data Results & Data Vital Signs (Past 12 Hours) Vital Signs Temp Pulse Resp BP Pulse Ox O2 Del Method 07/18/23 14:21 36.8 C 66 16 134/72 95 Room Air 07/18/23 07:03 36.7 C 59 L 17 120/66 99 Room Air Laboratory Results Short CBC 07/17/23 07/18/23 Range/Units 16:24 05:26 WBC 18.73 H 14.90 H (4.8-10.8) K/ul Hgb 13.9 L 11.9 L (14.0-18.0) g/dl Hct 39.8 L 34.7 L (42.0-52.0) % Plt Count 439 H 370 (130-400) K/uL BMP 07/17/23 07/18/23 16:24 05:26 Sodium 139 140 Potassium 3.5 3.9 Chloride 106 112 H Carbon Dioxide 28 24 BUN 9 8 Creatinine 0.82 0.71 Glucose 90 103 H Calcium 9.7 8.7 Liver Function 07/17/23 Range/Units 16:24 Total Bilirubin 0.4 (0.2-1.0) mg/dl AST 25 (13-39) U/L ALT 19 (7-52) U/L Alkaline Phosphatase 97 (34-104) U/L Albumin 4.2 (3.4-5.0) gm/dl Diagnostic Findings Hand MRI 07/17/23 16:08 MRI OF THE LEFT HAND WITH AND WITHOUT CONTRAST CLINICAL HISTORY: Left hand swelling. Cellulitis. Recent I&D. COMPARISON STUDY: No previous studies for comparison. TECHNIQUE: Utilizing a 1.5 Maria Isabel magnet and dedicated coil, multiplanar, multiecho imaging of the left hand was performed pre and postcontrast administration. Intravenous injection of 5.8 cc of Gadavist was uneventful. FINDINGS: A marker was placed on the skin at site of pain and swelling. There is no marrow edema to suggest osteomyelitis within the left hand. Note is made of extensive dorsal hand subcutaneous edema and enhancement. This extends into the left third, fourth and fifth fingers consistent with cellulitis. Note is made of a elongated subcutaneous pocket of fluid with rim enhancement along the palmar aspects of the bases of the left third, fourth and fifth fingers. This collection measures 4 x 0.8 x 0.7 cm. A small component extends along the medial proximal left fourth finger. This component measures 1.5 x 0.3 cm. No additional fluid collections are present. No increased fluid within the tendon sheaths is noted. IMPRESSION: 1. Extensive subcutaneous edema of the dorsal left hand extending into the left third, fourth and fifth fingers consistent with cellulitis. No MR evidence for acute osteomyelitis within the left hand. 2. Elongated subcutaneous rim enhancing fluid collection along the palmar aspects of the bases of the left third, fourth and fifth fingers which measures 4 x 0.8 x 0.7 cm. Sterility cannot be assessed by MRI however this favors an abscess. Alternately, this could reflect recent I&D site. Correlation with procedural history is recommended. ACT 112: Negative or not required by law. Electronically signed by: Vincent Chan M.D. 07/17/2023 6:46 PM Orbit X-Ray 07/17/23 16:19 [facility] RADIOGRAPHS 3 VIEWS HISTORY: pre-MRI screening. COMPARISON: None. FINDINGS: There are no radiopaque foreign bodies identified within the orbits. IMPRESSION: No radiopaque foreign bodies identified within the orbits. ACT 112: Negative or not required by law. Electronically signed by: Vincent Chan M.D. 07/17/2023 5:01 PM
[2023-07-18] MEDS ORDERED: fentaNYL citrate PF 100 MCG/2 ML VIAL IV PRN (16:56)
[2023-07-18] MEDS ORDERED: ONDANSETRON INJ 2 MG/ML 2 ML VIAL IV PRN (16:56)
[2023-07-18] MEDS ORDERED: ATROPINE SULFATE 0.1 MG/ML 10ML SYR IV PRN (16:56)
[2023-07-18] MEDS ORDERED: ePHEDrine sulfate 50 MG/ML AMP IV PRN (16:56)
[2023-07-18] MEDS ORDERED: fentaNYL citrate PF 100 MCG/2 ML VIAL ONE (16:57)
[2023-07-18] MEDS ORDERED: ONDANSETRON INJ 2 MG/ML 2 ML VIAL ONE (16:57)
[2023-07-18] MEDS ORDERED: MIDAZOLAM HCL 1 MG/ML 2ML VIAL ONE (16:57)
[2023-07-18] MEDS ORDERED: LIDOCAINE 2% 2 ML VIAL/AMP(20MG/ML) INFIL ONE (16:57)
[2023-07-18] MEDS ORDERED: DEXAMETHASONE SOD INJ 4 MG/ML VIAL ONE (16:57)
[2023-07-18] MEDS ORDERED: PROPOFOL IV EMULSION 10 MG/ML 20 ML VIAL IV ONE (16:57)
--- NOTE | 2023-07-18 16:58 | Orthopedic Consultation ---
Date of Consultation July 18, 2023 Assessment & Plan (1) Abscess of hand, left: He has an abscess in his left hand that has been present for almost 3 weeks since around 06/30 and progressively worsening despite multiple different rounds of antibiotics. I would recommend urgent irrigation and debridement of this abscess cavity for definitive eradication of this infection. He is in agreement with this plan. Risks, benefits, and alternatives of surgery were explained in detail. The surgical procedure, as well as postoperative recovery and rehabilitation, was also explained in detail. Risks include bleeding; persistent infection; damage to surrounding structures such as nerves, blood vessels, and tendons that run in the area; persistent pain, weakness, or stiffness; or need for further surgery. The patient understands all of this and wishes to proceed with surgery. Informed consent was obtained. History of Present Illness Reason for Consultation: Left hand infection Requesting Physician: Dr. Xiong Attending Physician: Orville Bernadr MD History of Present Illness Mr. Godinez is a 38-year-old [id number] male with a longstanding infection in his left hand. He reports this started almost 3 weeks ago on 06/30/23 when he had a callus on the volar aspect of his ring finger MCP joint split open. He very quickly developed pain and swelling around that area. He reports that he has been to multiple ERs since that started, and placed on multiple different courses of antibiotics without significant improvement in his obvious infection. He reports that 2 nights ago on 07/16 he was at [facility] when the lanced the area of obvious abscess and got a lot of purulent drainage. He reports that they did obtain cultures at that time, but we do not have those available for review. He reports that his pain and swelling have significantly improved over the past 2 days since that lancing of the abscess, as well as his IV antibiotic treatment here at [facility]. He came to our ER due to persistent problems with infection and unsatisfactory treatment at other hospitals. Orthopedics was consulted for further management. Consultation was originally directed to Dr. Xiong, who requested subspecialty Hand Surgery consultation due to the location of the abscess seen on MRI requiring surgical intervention. Allergies Allergy/AdvReac Type Severity Reaction Status Date / Time Bee Allergy Swelling Uncoded 07/17/23 16:17 of Lip/Tongue/Throat Home Medications Medication Instructions Recorded Confirmed Type buprenorphine 4 mg-naloxone 1 mg 1 film sublingual . QMIDDAY 07/17/23 07/17/23 History sublingual film buprenorphine 8 mg-naloxone 2 mg 1 film sublingual [facility] 07/17/23 07/17/23 History sublingual film clindamycin HCl 300 mg capsule 300 mg PO TID 07/17/23 07/17/23 History cyclobenzaprine 5 mg tablet 5 mg PO HS PRN Migraine Headache 07/17/23 07/17/23 History doxycycline hyclate 100 mg capsule 100 mg PO BID 07/17/23 07/17/23 History levofloxacin 500 mg tablet See Rx Instructions .Route .COMPLEX 07/17/23 07/17/23 History pantoprazole 40 mg tablet,delayed 40 mg PO BID 07/17/23 07/17/23 History release sumatriptan succinate 100 mg tablet 100 mg PO DAILY PRN Migraine 07/17/23 07/17/23 History Headache topiramate 100 mg tablet 100 mg PO BID 07/17/23 07/17/23 History Patient History Social History Smoking Status: Current every day smoker Tobacco Type: Cigarettes Cigarettes Per Day: 1.5 pack a day.; Second Hand Exposure: No; Do You Dip or Chew Tobacco: No; Tobacco Cessation Education Requested by Patient: No Hx Alcohol Use: No Hx Substance Use: No Preferred Language: Indonesian Communication Ability: Effective Banking Pin Adjuster Required: No Beliefs That Will Affect Care: None Current Living Situation: Family Current Living Situation Comment: Fiance and Kids. Other Information That Helps Us Care for You: No Feels Safe at Home: Yes Safety Concerns: Feels Safe At This Time Assistive Devices: None Physical Exam Physical Exam: Examination of the left hand reveals erythema, swelling, and fluctuance mostly involving the fourth webspace between the ring and small fingers. Patient reports that the abscess was lanced at the dorsal aspect of this webspace, but there is also a sinus tract at the volar aspect of the webspace. There is copious, mostly serous drainage from the sinus tract. There is an area of fluctuance on the dorsalradial aspect of the small finger at the proximal phalanx level. He has relatively good finger range of motion. No fixed flexed posture or fusiform swelling of the digits. No tenderness to palpation along the flexor tendon sheaths in the ring and small fingers. Fingers are warm well perfused. Sensation is intact to light touch. Results & Data Vital Signs (Past 12 Hours) Vital Signs Temp Pulse Pulse Resp BP Pulse Ox O2 Del Method 07/18/23 16:49 36.7 C 57 L 14 163/75 H 100 Room Air 07/18/23 14:21 36.8 C 66 16 134/72 95 Room Air 07/18/23 07:03 36.7 C 59 L 17 120/66 99 Room Air Laboratory Results Labs: WBC - 18.7 ESR - 44 CRP - 8.38 Diagnostic Findings Left hand MRI from 07/17/23 was independently interpreted by me. There is a fluid collection within the subcutaneous tissues along the volar aspect of the third through fifth MCP joints, and extending out the ulnar aspect of the ring finger and tracking along the ulnar neurovascular bundle, ending proximal to the PIP joint level. No evidence of osteomyelitis, flexor tenosynovitis, or septic arthritis.
[2023-07-18] MEDS ORDERED: GLYCOPYRROLATE 0.2 MG/ML VIAL ONE (17:31)
[2023-07-18] MEDS ORDERED: ceFAZolin 330 MG/ML 1 GM VIAL ONE (17:32)
[2023-07-18] MEDS ORDERED: KETAMINE 50 MG/5 ML SYRINGE ONE (17:51)
[2023-07-18] MEDS ORDERED: KETOROLAC 30 MG/ML VIAL ONE (18:32)
--- NOTE | 2023-07-18 18:49 | Operative Report ---
Post Operative Report Pre & Post Diagnosis Operation Date: 07/18/23 11:30 Pre-Op Diagnosis: Left hand abscess Post-Op Diagnosis: Left hand 4th webspace deep collar-button abscess I identified the patient and participated in the time-out.: Yes Procedure Operation Date: 07/18/23 11:30 Actual Procedures Left hand irrigation and debridement of 4th webspace deep collar-button abscess ([id number]) - Canelo Bean M.D. Surgeon Canelo Bean MD Research Geneticist None Estimated Blood Loss 15 Findings Consistent with Post-Op Diagnosis Specimens Culture swabs x 2 Drains Iodoform packing Anesthesia Type General Complications none Disposition Disposition: Recovery Room Indications Mr. Godinez is a 38-year-old male with a persistent left hand infection for the past 3 weeks. History, clinical exam, and imaging were consistent with the above diagnosis. Risks, benefits, and alternatives of surgery were explained in detail. The patient understood all this and wished to proceed. Description of Procedure Patient was identified in the preoperative holding area. Operative extremity was marked. Patient was then brought back to the operating room, and general anesthesia was induced without complication. Tourniquet was placed on the left forearm. The forearm was then prepped and draped in a standard sterile fashion using Chlorhexidine prep. The forearm was then exsanguinated with an Esmarch starting proximal to the zone of infection, and the tourniquet was inflated. Wounds were inspected. There was a fair bit of epidermolysis centered at the fourth webspace between the ring and small fingers extending volarly to dorsally. There was an open sinus tract on the volarradial aspect of the small finger at the base of the webspace, and a separate sinus tract directly dorsal from this at the dorsalradial aspect of the small finger, reportedly from where the abscess was lanced in the emergency room department 3 days ago. Epidermis and callus was elevated off of the volar aspect of the ring finger MCP joint, where the patient reported that the infection originated, but no open wound was found in this area through the dermis. Clinically, the majority of the infection appeared to extend up the radial aspect of the small finger, but preoperative MRI showed fluid extending along the ulnar aspect of the small finger. Incision was made along the mid-lateral line along the radial aspect of the small finger and ulnar aspect of the ring finger at the proximal phalanx level. Volarly, I extended this into the palm in a short Eduardo type fashion. There is a fair amount of thin, partly serous, partly purulent fluid within the wound bed; this was sampled on 2 separate culture swabs and sent for Gram stain and aerobic and anaerobic cultures. After cultures had been obtained, an appropriate weight-based dose of Ancef was infused intravenously for antibiotic prophylaxis. The tissue in the area was thickened, stiff, and scarred, consistent with a more chronic infection. I debrided this thickened scar tissue off of the radial neurovascular bundle of the small finger and ulnar neurovascular bundle of the ring finger, and carefully protected these throughout the remainder of the procedure. After the neurovascular bundles were protected, the wound beds were then sharply debrided with knife, scissors, curette, and ronguer. Clinically, this appeared most consistent with a collar- button abscess of the fourth webspace. After thorough debridement, I then copiously irrigated the wounds with sterile saline. Tourniquet was let down, and hemostasis was achieved with bipolar electrocautery. Skin was loosely closed with 4-0 Prolene over top of iodoform packing gauze. I then anesthetized the wound bed with a 50/50 mixture of 1% lidocaine and 0.5% Marcaine without epinephrine. Sterile dressings were then applied with Xeroform, sterile gauze, and Chucky wrap. The drapes were removed, the patient was awakened from anesthesia, and taken to the Post Anesthesia Care Unit in stable condition. There were no immediate complications to the procedure. I was present and scrubbed for the entire procedure. I attest to the content of the Intraoperative Record and any orders documented therein. Any exceptions are noted below.
--- NOTE | 2023-07-18 19:14 | Anesthesiology Progress Note ---
Date of Service July 18, 2023 Anesthesia Post Procedure Vital Signs Vital Signs: Temp Pulse Pulse Pulse Resp BP BP 07/18/23 19:10 52 L 12 155/88 H 07/18/23 19:00 58 L 15 151/90 H 07/18/23 18:50 96.8 F L 74 16 156/96 H 07/18/23 16:49 98.1 F 57 L 14 163/75 H 07/18/23 14:21 98.2 F 66 16 134/72 07/18/23 07:03 98.1 F 59 L 17 120/66 07/17/23 21:15 07/17/23 21:15 07/17/23 20:53 63 07/17/23 21:15 98.1 F 55 L 16 154/78 H 07/17/23 20:55 68 18 119/70 07/17/23 20:30 59 L 17 07/17/23 20:00 59 L 16 131/80 07/17/23 19:30 67 15 145/83 H 07/17/23 20:00 Pulse Ox O2 Del Method O2 Flow Rate 07/18/23 19:10 100 Room Air 07/18/23 19:00 99 Room Air 07/18/23 18:50 100 Oxymask 6 07/18/23 16:49 100 Room Air 07/18/23 14:21 95 Room Air 07/18/23 07:03 99 Room Air 07/17/23 21:15 Room Air 07/17/23 21:15 Room Air 07/17/23 20:53 07/17/23 21:15 98 Room Air 07/17/23 20:55 100 Room Air 07/17/23 20:30 99 07/17/23 20:00 99 Room Air 07/17/23 19:30 97 Room Air 07/17/23 20:00 Room Air Pain Intensity Left Hand: Pain Intensity: 4 Transfer of Care Handoff Completed per policy Notes Mental Status: alert / awake / arousable and participated in evaluation Patient Amnestic to Procedure: Yes Nausea / Vomiting: adequately controlled Pain: adequately controlled Airway Patency, RR, SpO2: stable & adequate BP & HR: stable & adequate Hydration State: stable & adequate Anesthetic Complications: no major complications apparent and Pt Satisfied with anesthetic care
[2023-07-18] MEDS: VANCOMYCIN HCL 1,250 MG in SODIUM CHLORIDE 0.9% 250 ML IV SCH (19:42)
[2023-07-19] MEDS: SODIUM CHLORIDE 0.9% 1,000 ML IV SCH ×3 (03:51→23:14)
[2023-07-19] MEDS: PIPERACILLIN/TAZOBACTAM 4.5 GM in DEXTROSE 5% MINI-B 100 ML IV SCH ×3 (03:52→20:01)
[2023-07-19] MEDS: VANCOMYCIN HCL 1,250 MG in SODIUM CHLORIDE 0.9% 250 ML IV SCH ×2 (05:48→17:59)
[2023-07-19 07:47] LABS: Hematocrit (blood only) 34.8 % (42.0-52.0); Hemoglobin 11.8 g/dl (14.0-18.0); Mean Corpuscular Hemoglobin 31.4 pg (25.0-34.0); Mean Corpuscular Hgb Conc 33.9 g/dL (32.0-36.0); Mean Corpuscular Volume 92.6 fL (80.0-100.0); Mean Platelet Volume 9.8 fL (9.4-12.4); Platelet Count 391 K/uL (130-400); RDW Coefficient of Variation 13.1 % (11.5-14.5); RDW Standard Deviation 44.5 fL (36.4-46.3); Red Blood Count 3.76 M/uL (4.70-6.10); White Blood Count 19.79 K/ul (4.8-10.8)
[2023-07-19 08:09] LABS: BUN Creatinine Ratio 17.9 (10-20); Calcium 8.3 mg/dl (8.6-10.3); Est GFR (African American) 127.8 ml/min; Est GFR (Non-African American) 110.3 ml/min; Magnesium 2.1 mg/dl (1.7-2.4); Potassium 4.2 mmol/L (3.5-5.1)
[2023-07-19] MEDS: TOPIRAMATE 100 MG TAB PO SCH ×2 (08:44→20:00)
[2023-07-19] MEDS: PANTOprazole 40 MG TAB PO SCH ×2 (08:44→20:00)
[2023-07-19] MEDS: BUPRENORPHINE/NALOXONE 8/2 MG TAB SL SCH ×2 (08:44→20:00)
[2023-07-19] MEDS: ACETAMINOPHEN 325 MG TAB PO PRN ×2 (09:27→13:44)
--- NOTE | 2023-07-19 12:10 | Orthopedic Progress Note ---
Date of Service July 19, 2023 Assessment & Plan (1) Abscess of hand, left: Plan: POD 1 s/p Left Hand Abscess I&D. Continue IV antibx (Vancomycin currently) Cx's showing Staph Sp. Await identification. Plan to start packing removal tomorrow. Admission and Anticipated Discharge Date Admission Date: July 17, 2023 Subjective POD 1 Pt lying in bed awake, alert. No complaints. States that his hand feels better than it did. No new complaints. Physical Exam Physical Exam: Dressings C/D/I. No drainage noted. Results & Data Vital Signs (Past 12 Hours) Vital Signs Temp Pulse Resp BP Pulse Ox O2 Del Method 07/19/23 11:51 36.6 C 56 L 16 125/67 100 Room Air 07/19/23 07:34 36.8 C 53 L 15 121/64 100 Room Air 07/19/23 03:51 36.6 C 61 16 106/41 L 99 Room Air
[2023-07-19] MEDS: KETOROLAC TROMETHAMINE 15 MG/ML VIAL IV PRN ×2 (12:58→21:45)
[2023-07-19] MEDS: BUPRENORPHINE/NALOXONE 2/0.5MG 1 TAB SL SCH (13:44)
--- NOTE | 2023-07-19 15:49 | Hospitalist Progress Note ---
Date of Service July 19, 2023 Assessment & Plan (1) Infection of left hand: Plan: 38-year-old male with past med significant for migraines, presents with left hand infection with wound between left fourth and fifth fingers. Has been on Bactrim, Doxy, Levaquin, clindamycin as an outpatient. S/p I&D on 07/16 at OSH. Left hand MRI - Extensive subcutaneous edema of the dorsal left hand extending into the left third, fourth and fifth fingers consistent with cellulitis. No MR evidence for acute osteomyelitis within the left hand. Elongated subcutaneous rim enhancing fluid collection along the palmar aspects of the bases of the left third, fourth and fifth fingers which measures 4 x 0.8 x 0.7 cm. Sterility cannot be assessed by MRI however this favors an abscess. Alternately, this could reflect recent I&D site. Correlation with procedural history is recommended. Remains afebrile, does not appear septic Ortho consulted POD #1 Left hand irrigation and debridement of 4th webspace deep collar-button abscess by Dr. Bean On IV Vanco and Zosyn (day 3) Surgical culture -preliminary result Staphylococcus species ID consult for tomorrow Migraines Chronic, stable Continue home medications GERD Chronic, stable Continue PPI Chronic pain Continue Suboxone DVT prophylaxis SCDs Patient seen in collaboration with Dr. Bernard. Admission and Anticipated Discharge Date Admission Date: July 17, 2023 Supervising Physician Co-Signing Physician Notes Pt seen and examined by me, care coordinated w/ ANAIS Martinez , pls refer to her note above for further detail. Pt is s/p I&D w/ orthopedics yesterday. Pt is currently sitting up in bed, in NAD. Overall says he feels well, without any fever, chills, chest pain, shortness of breath, abd. pain., n or v. Reports his hand feels somewhat sore after I&D. He is alert oriented, answering appropriately. Heart sounds regular, lung sounds clear to auscultation, abdomen soft, nontender, nondistended. Moving extremities. Left hand covered in surgical dressings. Per ortho - plan to follow up tmrw. Continue broad spectrum antibiotic. Cultures from OR obtained - posit. for Staph. sp. Await final cultures. Discuss w/ ID. MD Joana Subjective Follow-up for left hand infection with abscess, s/p surgical I&D by orthopedics. Patient seen and examined. Reports left hand pain is well controlled, feeling much better. Remains afebrile. Offers no other complaints. Review of Systems Review of Systems: All systems reviewed & are unremarkable except as noted in Subjective Physical Exam Constitutional: WD/WN, vitals as above Respiratory: normal respiratory effort, lungs clear to auscultation Cardiovascular: Rate/Rhythm: regular rate and regular rhythm Vessels: normal peripheral pulses Extremities: no edema Gastrointestinal (Abdomen): Percussion/Palpation: abdomen soft; abdomen nontender Musculoskeletal: S/p left hand surgery, dressing CDI, CSM checks intact left hand Skin: no rashes, warm and dry Neurologic: no focal motor deficits Psychiatric: A+Ox3, euthymic affect Results & Data Results & Data Vital Signs (Past 12 Hours) Vital Signs Temp Pulse Resp BP Pulse Ox O2 Del Method 07/19/23 15:30 36.8 C 54 L 16 121/63 100 Room Air 07/19/23 11:51 36.6 C 56 L 16 125/67 100 Room Air 07/19/23 07:34 36.8 C 53 L 15 121/64 100 Room Air 07/19/23 03:51 36.6 C 61 16 106/41 L 99 Room Air Laboratory Results Short CBC 07/19/23 Range/Units 07:21 WBC 19.79 H (4.8-10.8) K/ul Hgb 11.8 L (14.0-18.0) g/dl Hct 34.8 L (42.0-52.0) % Plt Count 391 (130-400) K/uL BMP 07/19/23 07:21 Sodium 141 Potassium 4.2 Chloride 114 H Carbon Dioxide 24 BUN 15 Creatinine 0.84 Glucose 131 H Calcium 8.3 L Medications Administered Current Inpatient Medications Acetaminophen (Acetaminophen 325 Mg Tab) 650 mg PO Q4H PRN PRN Reason: pain/fever Stop: 08/16/23 21:30 Last Admin: 07/19/23 13:44 Dose: 650 mg Buprenorphine/Naloxone (Buprenorphine/Naloxone 8/2 Mg Tab) 1 tab SL [facility] Stop: 08/16/23 21:30 Last Admin: 07/19/23 08:44 Dose: 1 tab Buprenorphine/Naloxone (Buprenorphine/Naloxone 2/0.5mg 1 Tab) 2 tab SL DAILY@1400 [facility] Stop: 08/17/23 13:59 Last Admin: 07/19/23 13:44 Dose: 2 tab Cyclobenzaprine HCl (Cyclobenzaprine Hcl 5 Mg Tab) 5 mg PO HS PRN PRN Reason: Migraine Headache Stop: 08/16/23 21:30 Sodium Chloride (Nss) 1,000 mls @ 125 mls/hr IV .Q8H [facility] Stop: 08/16/23 21:30 Last Admin: 07/19/23 15:11 Dose: 125 mls/hr Piperacillin Sod/Tazobactam (Sod 4.5 gm/ Dextrose) 100 mls @ 25 mls/hr IV Q8H [facility]; Protocol Stop: 07/25/23 03:59 Last Admin: 07/19/23 12:55 Dose: 25 mls/hr Vancomycin HCl 1,250 mg/ (Sodium Chloride) 275 mls @ 200 mls/hr IV Q12H [facility] Stop: 07/25/23 17:59 Last Infusion: 07/19/23 07:35 Dose: Infused Ketorolac Tromethamine (Ketorolac Tromethamine 15 Mg/Ml Vial) 15 mg IV Q6H PRN PRN Reason: Pain Stop: 07/22/23 21:47 Last Admin: 07/19/23 12:58 Dose: 15 mg Miscellaneous Information (Vancomycin Consult Active) 1 each N/A UD PRN PRN Reason: Consult Stop: 08/16/23 16:07 Pantoprazole Sodium (Pantoprazole 40 Mg Tab) 40 mg PO BID [facility] Stop: 08/16/23 21:30 Last Admin: 07/19/23 08:44 Dose: 40 mg Polyethylene Glycol (Polyethylene (Miralax) 17 Gm Pack) 17 gm PO DAILY PRN PRN Reason: Constipation Stop: 08/16/23 21:30 Sumatriptan Succinate (Sumatriptan Succinate 100 Mg Tab) 100 mg PO DAILY PRN PRN Reason: Migraine Headache Stop: 08/16/23 21:30 Topiramate (Topiramate 100 Mg Tab) 100 mg PO BID [facility] Stop: 08/16/23 21:30 Last Admin: 07/19/23 08:44 Dose: 100 mg
[2023-07-19] MEDS ORDERED: Nursing to Pharmacy Communication SCH (21:45)
[2023-07-20] MEDS: PIPERACILLIN/TAZOBACTAM 4.5 GM in DEXTROSE 5% MINI-B 100 ML IV SCH (04:00)
[2023-07-20] MEDS ORDERED: VANCOMYCIN LEVEL ONE (05:00)
[2023-07-20 05:38] LABS: Hemoglobin 11.3 g/dl (14.0-18.0); Mean Corpuscular Hgb Conc 33.2 g/dL (32.0-36.0); Mean Corpuscular Volume 93.4 fL (80.0-100.0); Mean Platelet Volume 9.5 fL (9.4-12.4); Platelet Count 378 K/uL (130-400); RDW Coefficient of Variation 13.2 % (11.5-14.5); RDW Standard Deviation 45.5 fL (36.4-46.3); Red Blood Count 3.64 M/uL (4.70-6.10); White Blood Count 15.91 K/ul (4.8-10.8)
[2023-07-20 05:54] LABS: Est GFR (African American) 117.9 ml/min; Est GFR (Non-African American) 101.7 ml/min; Potassium 3.6 mmol/L (3.5-5.1)
[2023-07-20 05:55] LABS: BUN Creatinine Ratio 10.6 (10-20); Calcium 8.2 mg/dl (8.6-10.3); Creatinine Clr Calc Pharmacy 90.3 ml/min; Magnesium 2.1 mg/dl (1.7-2.4); Phosphorus 3.4 mg/dl (2.5-4.9)
[2023-07-20] MEDS: VANCOMYCIN HCL 1,250 MG in SODIUM CHLORIDE 0.9% 250 ML IV SCH (06:03)
[2023-07-20] MEDS: SODIUM CHLORIDE 0.9% 1,000 ML IV SCH ×2 (06:09→14:09)
[2023-07-20] MEDS: BUPRENORPHINE/NALOXONE 8/2 MG TAB SL SCH ×2 (08:27→20:14)
[2023-07-20] MEDS: PANTOprazole 40 MG TAB PO SCH ×2 (08:27→20:15)
[2023-07-20] MEDS: TOPIRAMATE 100 MG TAB PO SCH ×2 (08:27→20:15)
--- NOTE | 2023-07-20 10:42 | Pharmacy Report ---
Pharmacy PK ABX Note - Date of Service July 20, 2023 - Assessment and Plan Assessment 38 year old M receiving vancomycin/Zosyn for treatment of SST--hand infection (failed multiple outpatient antibiotics). Had an I&D of the area at an outside hospital. Pertinent microbiologic data includes: blood cultures pending show no growth to date, left hand cultures growing MSSA. Discussed culture results with hospitalist, will discontinue Zosyn now, but vancomycin to be continued p ending ID consult. Anticipating change to cefazolin or cephalexin would be reasonable pending any new/updated culture data. Day # 4 of antimicrobial therapy. Plan Vancomycin * Current regimen: 1250 mg IV every 12 hours * Trough level obtained 07/20/23 resulted as 10.8 mcg/mL. This is predicted to achieve target AUC/ED of 400-600 mg/L.hr * Predicted AUC at steady state: 546 mg/L.hr * Continue 1250 mg IV every 12 hours * Will repeat level in the next 48-72 hours if therapy is continued and/or change in patient clinical status Pharmacy will continue to follow and will adjust dose/frequency as necessary. Thank you. Pharmacy has transitioned to AUC monitoring for vancomycin. AUC/ED is the preferred PK/PD target and is associated with decreased risk of nephrotoxicity compared to traditional trough targets.
--- NOTE | 2023-07-20 10:56 | Infectious Disease Consult ---
Date of Service July 20, 2023 Telehealth Information I performed this visit using a real-time telehealth connection between my location and the patients location ([facility]). After connecting through interactive tele-video, patient was identified by name and date of and/or wristband check.Patient (or authorized healthcare screening representative) was informed that this was a telemedicine visit and it was being conducted confidentially over secure lines. My office door was closed and no o ne else was present in the room with me.Patient (or authorized healthcare screening representative) provided consent to proceed with the visit, expressed an understanding of privacy and security of the telemedicine visit, and gave permission to have a hospital screening representative in the room in order to assist with the visit and to conduct portions of the visit, as needed. I informed the patient (or authorized healthcare screening representative) that I reviewed their record and presented the opportunity for them to ask any questions regarding the visit today. The patient agreed to participate. Assessment & Plan (1) MSSA (methicillin susceptible Staphylococcus aureus) infection: Plan Recommend switching vancomycin to ancef 2G IV q 8hrs and treating for a total of 4 weeks .If there is difficulty with the TID dosing can consider a nafcillin ball .He should receive atleast 2 weeks of IV can consider switching to zyvox if covered by his insurance after 2 weeks to complete 4 weeks if having a midline is an issue History of Present Illness History of Present Illness 38 y/o M PMHx migraines, who presented with left hand infection after failing outpatient treatment .He was empirically started on zosyn and vancomycin Patient states 11 days ago at work his callus in his left hand between ring and little finger started to bleed. 3 days later he went to outpatient doctor and was prescribed Bactrim and advised to go to hospital if does not improve in 48 hours. It was not getting better and he went to ER and was prescribed different antibiotics and was advised the same. As he was not getting better he went to [facility] day before yesterday and prescribed clindamycin and a different antibiotic but by the following day his hand was swollen and painful so went to the same hospital and the wound was I&D and IV antibiotics and fluids were given. As there were no beds in the hospital he was advised to wait or go to a different hospital and so he came to [facility] on 07/17/23 where he was found to have some slight drainage from the I&D site.He was taken to the OR for left hand irrigation and debridement of 4th webspace deep collar-button abscess .His wound cultures are growing MSSA and he is on vancomycin Allergies Allergy/AdvReac Type Severity Reaction Status Date / Time Bee Allergy Swelling Uncoded 07/17/23 16:17 of Lip/Tongue/Throat Home Medications Medication Instructions Recorded Confirmed Type buprenorphine 4 mg-naloxone 1 mg 1 film sublingual . QMIDDAY 07/17/23 07/17/23 History sublingual film buprenorphine 8 mg-naloxone 2 mg 1 film sublingual AMHS 07/17/23 07/17/23 History sublingual film clindamycin HCl 300 mg capsule 300 mg PO TID 07/17/23 07/17/23 History cyclobenzaprine 5 mg tablet 5 mg PO HS PRN Migraine Headache 07/17/23 07/17/23 History doxycycline hyclate 100 mg capsule 100 mg PO BID 07/17/23 07/17/23 History levofloxacin 500 mg tablet See Rx Instructions .Route .COMPLEX 07/17/23 07/17/23 History pantoprazole 40 mg tablet,delayed 40 mg PO BID 07/17/23 07/17/23 History release sumatriptan succinate 100 mg tablet 100 mg PO DAILY PRN Migraine 07/17/23 07/17/23 History Headache topiramate 100 mg tablet 100 mg PO BID 07/17/23 07/17/23 History Patient History Medical History (Updated 07/20/23 @ 15:20 by Arianna Shultz MD) Abscess of hand, left Infection of left hand Social History Smoking Status: Current every day smoker Tobacco Type: Cigarettes Cigarettes Per Day: 1.5 pack a day.; Second Hand Exposure: No; Do You Dip or Chew Tobacco: No; Tobacco Cessation Education Requested by Patient: No Hx Alcohol Use: No Hx Substance Use: No Preferred Language: Albanian Communication Ability: Effective Surgical Product Sales Consultant Required: No Beliefs That Will Affect Care: None Current Living Situation: Family Current Living Situation Comment: Fiance and Kids. Other Information That Helps Us Care for You: No Feels Safe at Home: Yes Safety Concerns: Feels Safe At This Time Assistive Devices: None Review of Systems Patient complains of pain to his left hand Physical Exam Awake alert oriented X 3 normal respiratory effort Results & Data Vital Signs (Past 12 Hours) Vital Signs Temp Pulse Resp BP Pulse Ox O2 Del Method 07/20/23 07:18 36.6 C 52 L 19 126/70 100 Room Air Laboratory Results S aureus RX M.I.C. --- --------- Clindamycin R >4 Daptomycin S <=0.5 Erythromycin R >4 Oxacillin S <=0.25 Tetracycline S <=4 Trimeth/Sulfa S <=0.5/9.5 Vancomycin S 2 S = SENSITIVE I = INTERMEDIATE R = RESISTANT Diagnostic Findings MPRESSION: 1. Extensive subcutaneous edema of the dorsal left hand extending into the left third, fourth and fifth fingers consistent with cellulitis. No MR evidence for acute osteomyelitis within the left hand. 2. Elongated subcutaneous rim enhancing fluid collection along the palmar aspects of the bases of the left third, fourth and fifth fingers which measures 4 x 0.8 x 0.7 cm. Sterility cannot be assessed by MRI however this favors an abs cess. Alternately, this could reflect recent I&D site. Correlation with procedural history is recommended.
[2023-07-20] MEDS: BUPRENORPHINE/NALOXONE 2/0.5MG 1 TAB SL SCH (13:25)
--- NOTE | 2023-07-20 14:47 | Hospitalist Progress Note ---
Date of Service July 20, 2023 Assessment & Plan (1) Infection of left hand: Plan: 38-year-old male with past med significant for migraines, presents with left hand infection with wound between left fourth and fifth fingers. Has been on Bactrim, Doxy, Levaquin, clindamycin as an outpatient. S/p I&D on 07/16 at OSH. Left hand MRI - Extensive subcutaneous edema of the dorsal left hand extending into the left third, fourth and fifth fingers consistent with cellulitis. No MR evidence for acute osteomyelitis within the left hand. Elongated subcutaneous rim enhancing fluid collection along the palmar aspects of the bases of the left third, fourth and fifth fingers which measures 4 x 0.8 x 0.7 cm. Sterility cannot be assessed by MRI however this favors an abscess. Alternately, this could reflect recent I&D site. Correlation with procedural history is recommended. Remains afebrile, does not appear septic Ortho consulted POD #2 Left hand irrigation and debridement of 4th webspace deep collar-button abscess by Dr. Bean Surgical Culture x 2 - MSSA Received IV Vanco and Zosyn -- changing to IV Ancef today per ID recs, will treat for 4 weeks - PICC line will be placed, CM to arrange Migraines Chronic, stable Continue home medications GERD Chronic, stable Continue PPI Chronic pain Continue Suboxone DVT prophylaxis SCDs Patient seen in collaboration with Dr. Carlos. Admission and Anticipated Discharge Date Admission Date: July 17, 2023 Supervising Physician Co-Signing Physician Notes Patient is seen and examined at bedside. Denies any significant left wrist pain. Offers no complaints this morning. Reviewed ID recommendations. On exam patient is thin, no apparent distress, normocephalic/atraumatic, EOMI, decreased breath sounds, clear to auscultation, S1-S2, no murmur, no pedal edema, abdomen soft, nontender, normal bowel sounds, alert, awake, oriented, grossly no focal deficits, left wrist in surgical dressing. Left hand abscess S/P I&D. Wound cultures growing MSSA. Blood cultures negative to date. IV Zosyn, vancomycin transition to cefazolin. Appreciate orthopedics, ID input. Will need PICC line placement prior to discharge. Plan to continue IV antibiotics for 4 weeks. Will need follow-up with orthopedics upon discharge. Tobacco use disorder. Advised to quit smoking. I personally reviewed the record. Patient is interviewed and examined at bedside. Patient's care is coordinated with Radha Peña GEOLOGY ASSOCIATE. Please refer to the documentation above for details of patient's presentation and for discussion of other issues. Subjective Follow-up for left hand infection with abscess, s/p surgical I&D by orthopedics. Patient seen and examined. Reports he continues to improve. Offers no complaints. Review of Systems Review of Systems: All systems reviewed & are unremarkable except as noted in Subjective Physical Exam Constitutional: WD/WN, vitals as above no acute distress Respiratory: normal respiratory effort, lungs clear to auscultation Cardiovascular: Rate/Rhythm: regular rate and regular rhythm Vessels: normal peripheral pulses Extremities: no edema Gastrointestinal (Abdomen): Percussion/Palpation: abdomen soft; abdomen nontender Musculoskeletal: s/p left hand surgery, dressing CDI, CSM checks intact Skin: no rashes, warm and dry Neurologic: no focal motor deficits Psychiatric: A+Ox3, euthymic affect Results & Data Results & Data Vital Signs (Past 12 Hours) Vital Signs Temp Pulse Resp BP Pulse Ox O2 Del Method 07/20/23 07:18 36.6 C 52 L 19 126/70 100 Room Air Laboratory Results Short CBC 07/20/23 Range/Units 05:23 WBC 15.91 H (4.8-10.8) K/ul Hgb 11.3 L (14.0-18.0) g/dl Hct 34.0 L (42.0-52.0) % Plt Count 378 (130-400) K/uL BMP 07/20/23 05:23 Sodium 141 Potassium 3.6 Chloride 116 H Carbon Dioxide 21 BUN 10 Creatinine 0.94 Glucose 135 H Calcium 8.2 L
[2023-07-20] MEDS: ceFAZolin 2000MG 2,000 MG/15 ML SYR IV SCH ×2 (14:48→22:03)
--- NOTE | 2023-07-20 16:15 | Orthopedic Progress Note ---
Date of Service July 20, 2023 Assessment & Plan (1) Abscess of hand, left: Plan: POD 2 s/p Left Hand Abscess I&D. Infectious disease team has given their input. Cultures noting MSSA. Vancomycin discontinued and patient started on cefazolin 2 g every 8 hours. They are planning on treating this abscess for 4 weeks on IV antibiotics. PICC line ordered to be placed. Continue daily dressing changes. Admission and Anticipated Discharge Date Admission Date: July 17, 2023 Subjective Postop day 2 Patient sitting up in bed awake and alert. No complaints today. Physical Exam Physical Exam: Dressings remain clean, dry, and intact. Dressings removed. All iodoform gauze has been removed. Patient continues to have approximately a 1 cm with opening into the webspace. Wound was redressed. Sutures are intact. Some mild skin mottling around the edges of the opening secondary to drainage. Results & Data Vital Signs (Past 12 Hours) Vital Signs Temp Pulse Resp BP Pulse Ox O2 Del Method 07/20/23 15:06 36.9 C 61 18 125/65 99 Room Air 07/20/23 07:18 36.6 C 52 L 19 126/70 100 Room Air Diagnostic Findings kehinde: EMILIA ALVAREZ Acct: [id number] Status: [place] 1985 [facility] [place] 07[place]17/23 Age: 38 Sex: M Dis Date: Loc: Medical/Surgical/Ortho [address] [place] [address]/Bed: N[facility] Spec: [id number] Collected: 07/18/23 Received: 07/18/[address] [facility] [address]: Canelo Bean M.D. Copy To: Augustus Westfall MD Source: Hand,Left OV Order: Ordered: Aer/Evelyn Cult/Sm Comments: Comment 1. Left hand culture #1 Procedure Result Verified Site Gram Stain Final 07/19/23 Gram Stain Result Many WBCs Seen Few Gram Positive Cocci Aero/Evelyn Cult Preliminary 07/20/23 Organism 1 Staphylococcus aureus Quantity Few Sens Sensitivities to Follow S aureus RX M.I.C. --- --------- Clindamycin R >4 Daptomycin S <=0.5 Erythromycin R >4 Oxacillin S <=0.25 Tetracycline S <=4 Trimeth/Sulfa S <=0.5/9.5 Vancomycin S 2 S = SENSITIVE I = INTERMEDIATE R = RESISTANT
[2023-07-20] MEDS: KETOROLAC TROMETHAMINE 15 MG/ML VIAL IV PRN (21:58)
[2023-07-21] MEDS: ceFAZolin 2000MG 2,000 MG/15 ML SYR IV SCH ×2 (05:05→15:22)
[2023-07-21 07:46] LABS: Hematocrit (blood only) 39.3 % (42.0-52.0); Mean Corpuscular Hemoglobin 31.2 pg (25.0-34.0); Mean Corpuscular Hgb Conc 33.1 g/dL (32.0-36.0); Mean Corpuscular Volume 94.2 fL (80.0-100.0); Mean Platelet Volume 9.8 fL (9.4-12.4); Platelet Count 420 K/uL (130-400); RDW Coefficient of Variation 13.3 % (11.5-14.5); RDW Standard Deviation 45.8 fL (36.4-46.3); Red Blood Count 4.17 M/uL (4.70-6.10); White Blood Count 17.06 K/ul (4.8-10.8)
[2023-07-21 08:14] LABS: BUN Creatinine Ratio 11.4 (10-20); Calcium 8.5 mg/dl (8.6-10.3); Creatinine Clr Calc Pharmacy 107.4 ml/min; Est GFR (African American) 131.1 ml/min; Est GFR (Non-African American) 113.1 ml/min; Potassium 3.8 mmol/L (3.5-5.1)
[2023-07-21] MEDS: BUPRENORPHINE/NALOXONE 8/2 MG TAB SL SCH (08:38)
[2023-07-21] MEDS: PANTOprazole 40 MG TAB PO SCH (08:39)
[2023-07-21] MEDS: TOPIRAMATE 100 MG TAB PO SCH (08:39)
[2023-07-21] MEDS: BUPRENORPHINE/NALOXONE 2/0.5MG 1 TAB SL SCH (15:22)
--- NOTE | 2023-07-21 15:28 | XRay Report ---
XR chest 1V portable CLINICAL HISTORY: RIGHT PICC LINE PLACEMENT TECHNIQUE: Single frontal radiograph of the chest was obtained. Comparison: None available at the time of this dictation. FINDINGS: A PICC has been placed with the tip at the lower SVC. The cardiomediastinal silhouette is normal. The lungs are clear. No evidence of pleural effusion or pneumothorax. IMPRESSION: Interval placement of a PICC with its tip in satisfactory position. No pneumothorax. ACT 112: Negative or not required by law. Electronically signed by: Shay Burton M.D. 07/21/2023 3:26 PM
--- NOTE | 2023-07-21 15:34 | Discharge Summary ---
Discharge Summary Date of Service July 21, 2023 Notes For Next Care Provider MSSA hand infection 2/2 wound s/p I&D of 4th webspace deep collar-button abscess by Dr. Bean on 07/19/23 Medication Changes From Visit IV Ancef 2gm Q8H x 4 weeks Admission HPI Per Admitting Provider 38-year-old male with past med significant for migraines, presents with left hand infection. Patient states 11 days ago at work his callus in his left hand between ring and little finger started to bleed. 3 days later he went to outpatient doctor and was prescribed Bactrim and advised to go to hospital if does not improve in 48 hours. It was not getting better and he went to ER and was prescribed different antibiotics and was advised the same. As he was not getting better he went to [facility] day before yesterday and prescribed clindamycin and a different antibiotic but by the next day which is yesterday the hand is swollen and painful so went to the same hospital last night and the wound was sliced and IV antibiotics and fluids were given. As there were no beds in the hospital he was advised to wait and see or go to a different hospital and he came to our hospital today. There is some slight drainage from the I&D site. Denies any fevers. Resting comfortably and hemodynamically stable. Denies any chest pain or shortness of breath. No headaches. No blurred visions. No earache or runny nose or sore throat. No cough. Appetite is okay. No nausea. Normal bowel and bladder movements. No hematuria or blood in the stools. Past medical history as mentioned above Past surgical history none as per patient Social history. Smokes 1 and half pack a day for about 20 years. Denies alcohol use. Used to take pain pills in the past currently on Suboxone. Family history. Mother had diabetes Admission Exam Per Admitting Provider General- Not in distress Head- atraumatic Eyes- PERRL. ENT- oropharynx clear Neck- supple, no JVD. Lungs- clear to auscultation, No wheezing or crackles Heart- regular rate and rhythm; no murmur, no gallop. Abdomen- normal bowel sounds, soft, nontender, no distension. Extremities- no pretibial edema, seling and open wound with mild serosanguineous drainage seen between left third and little finger Neuro- alert, oriented x 3; PERRL,; no facial palsy; no dysarthria;Non focal. Skin- warm & dry Principal Dx & Hospital Course #1 = Principal Diagnosis (1) Infection of left hand: This is a 38-year-old male with past med significant for migraines, presents with left hand infection with wound between left fourth and fifth fingers. Has been on Bactrim, Doxy, Levaquin, clindamycin as an outpatient. S/p I&D on 07/16 at OSH. Left hand MRI showed extensive subcutaneous edema of the dorsal left hand extending into the left third, fourth and fifth fingers consistent with cellulitis. Underwent left hand irrigation and debridement of 4th webspace deep collar-button abscess by Dr. Bean on 07/19/23. Surgical Culture x 2 grew MS SA. Transitioning home on IV Ancef x 4 weeks per ID recommendation. Picc line placed and completed education. Will have lab work done with coordination of home health. Instructed to schedule 1 week follow up with [facility] for wound check. Continue Suboxone for chronic pain. H/o addiction to narcotics but has been sober for 5 years. Has family support in place and a NA group he has attended in the past. Patient comfortable and hemodynamically stable for discharge home. Discharge Exam Gen: WD/WN, NAD, sitting in bedside chair, A&Ox3 HEENT: Normocephalic, atraumatic, conjunctivae moist, sclerae anicteric, mucous membranes moist Lung: Clear to Auscultation bilaterally, no wheezes/rales/rhonchi Heart: Regular rate, regular rhythm, no murmurs, rubs, or gallops Abdomen: Soft, NT, ND +BS x 4 Extremities: + L hand with surgical dressing c/d/i. Distally NVI. No edema Skin: Warm, no rash Updated Medication List Medication Instructions Recorded Confirmed Type buprenorphine 4 mg-naloxone 1 mg 1 film sublingual . QMIDDAY 07/17/23 07/17/23 History sublingual film buprenorphine 8 mg-naloxone 2 mg 1 film sublingual AMHS 07/17/23 07/17/23 History sublingual film cyclobenzaprine 5 mg tablet 5 mg PO HS PRN Migraine Headache 07/17/23 07/17/23 History pantoprazole 40 mg tablet,delayed 40 mg PO BID 07/17/23 07/17/23 History release sumatriptan succinate 100 mg tablet 100 mg PO DAILY PRN Migraine 07/17/23 07/17/23 History Headache topiramate 100 mg tablet 100 mg PO BID 07/17/23 07/17/23 History cefazolin 2 gram intravenous 2 g IV Q8H 4 weeks #50 ea 07/21/23 Rx solution Hospital Stay Data Consultations 07/17/23 19:22 ED Decision to Admit Stat 07/18/23 08:00 Consult Orthopedic Surgery Routine 07/20/23 09:00 Consult Infectious Diseases Routine Procedures Performed Operation Date: 07/18/23 11:30 Actual Procedures p Left Hand Abscess Incision and Drainage(Left) - Canelo Bean M.D. Diagnostic Imagining Performed 07/17/23 16:08 MR hand LT wo/w con Stat Pending Results Patient Have Any Pending Studies at Discharge: No Discharge Instructions Given to Patient (Per Discharging Provider) MEDICATION CHANGES: IV Ancef 2gm Q8H x 4 weeks SUMMARY OF TEST RESULTS: You were admitted for left hand infection. Left hand MRI showed extensive subcutaneous edema of the dorsal left hand extending into the left third, fourth and fifth fingers consistent with cellulitis. Underwent left hand irrigation and debridement of 4th webspace deep collar- button abscess by Dr. Bean on 07/19/23 Surgical Culture x 2 grew MSSA Transitioning home on IV Ancef x 4 weeks per ID recommendation PENDING TEST RESULTS: None RECOMMENDATIONS FOR FOLLOW-UP: Follow up with PCP and orthopedic service as scheduled. Complete antibiotic in its entirety. Continue medication regimen as scheduled aside from changes noted above. OTHER INSTRUCTIONS: Seek medical attention if you have: * temperature above 101 * chest pain or trouble breathing * abdominal pain, nausea, vomiting * diarrhea, dark stools or bloody stools * any unanswered questions or concerns Call 911 if symptoms are severe. Please take good care of yourself. Call if you have any questions or problems. You can reach a [facility] hospitalist on duty at [facility] 24 hours a day by calling [phone]. Orthopedic Surgery Discharge Instructions: Things to Watch Out For -Call the orthopedics clinic immediately if you have a sudden increase in the amount of wound drainage or the drainage becomes thick, yellow or green, or foul-smelling. -For routine questions, call the clinic at [phone] during regular business hours (8am-5pm). For urgent issues after regular business hours, you may call the clinic to be connected to the on-call physician. Dressings/Wound Care -Perform twice daily soap soak protocol as discussed: Fill a small basin or large bowl with lukewarm tap water. Add 2-3 pumps of antibacterial hand soap. Swish and soak your hand in the solution for 5 to 10 minutes. Pat your hand dry, then apply a new clean dry dressing. Repeat this twice a day until otherwise instructed. -You may wash your hand and let water run over the incision in the shower. Do not soak or submerge your hand in any dirty water such as bath tubs, pools, hot tubs, dish pans, ponds, lakes, etc. Activity -Keep your hand elevated and move your fingers frequently to reduce swelling and prevent stiffness. Followup -Call [facility] at [phone] and schedule a followup appointment with Dr. Bean within 1 week for a wound check. Total Time Total Time Spent Total Time Spent (In Minutes): 60 Supervising Physician Co-Signing Physician Notes Patient is seen and examined at bedside. Denies any significant left wrist pain. No significant change from yesterday clinically. Eager to get discharged. Noted leukocytosis, afebrile. Plan to be placed on PICC line today. On exam patient is thin, no apparent distress, normocephalic/atraumatic, EOMI, decreased breath sounds, clear to auscultation, S1-S2, no murmur, no pedal edema, abdomen soft, nontender, normal bowel sounds, alert, awake, oriented, grossly no focal deficits, left wrist in surgical dressing. Left hand abscess S/P I&D. Wound cultures growing MSSA. Blood cultures negative to date. IV Zosyn, vancomycin transition to cefazolin. Continue dating dressing as per orthopedics. Appreciate orthopedics, ID input. Plan to continue IV antibiotics for 4 weeks. Will need follow-up with orthopedics upon discharge. Tobacco use disorder. Advised to quit smoking. I personally reviewed the record. Patient is interviewed and examined at bedside. Patient's care is coordinated with Emmy Jeffers PA-C. Please refer to the documentation above for details of patient's presentation and for discussion of other issues.
--- NOTE | 2023-07-21 15:51 | Orthopedic Progress Note ---
Date of Service July 21, 2023 Assessment & Plan (1) Infection of left hand: Plan: Postop day #3 status post irrigation and debridement of left hand abscess. -His hand appears much improved today upon dressing change. I think he can be discharged home once his IV antibiotics are arranged. -Cultures growing MSSA. Infectious disease recommending Ancef 2 g every 8 hours IV for 4 weeks. -Patient and his instructed on wound care and dressing changes. I would recommend twice daily soap soak protocol. -Follow-up with Dr. Bean in orthopedic surgery clinic within 1 week for wound check. Please call [facility] at [phone] to make an appointment. Admission and Anticipated Discharge Date Admission Date: July 17, 2023 Subjective Patient resting comfortably. He is states that he feels "really good". Denies significant pain in his hand. He feels like his hand pain is markedly improved compared to preoperatively. Physical Exam Physical Exam: Left hand dressings taken down and changed. His incisions are healing well. He still has a small opening in the webspace where the packing was removed, but it is progressively decreasing in size. Swelling in the hand and ring and small fingers is progressively decreasing. No evidence of spreading infection. Good finger range of motion. Sensation is intact to light touch of the ulnar and radial borders of the ring and small fingers. Results & Data Vital Signs (Past 12 Hours) Vital Signs Temp Pulse Resp BP Pulse Ox O2 Del Method 07/21/23 07:47 36.5 C 55 L 16 130/77 99 Room Air
--- NOTE | 2023-08-03 12:48 | Coding Query ---
To promote full compliance with coding requirements relating to patient care, provider participation is requested in all cases of visual merchandising specialist uncertainty. Please assist us with the question(s) below: Coding Question(s): The diagnosis(es) below was documented in the (ER visit summary, MRI results) then subsequently fell off all further documentation. Please indicate if it is still a possible diagnosis or ruled out. Physician's Response(s): LEFT HAND CELLULITIS ( x ) Diagnosed and POA ( ) Diagnosed and not POA ( ) Ruled out ( ) Other (please specify) MTDD
== END 2023-07-21 16:36 | disposition home or self-care (01) | DRG 580 ==
LOC: ED 15:39 → SUATTDRO 20:10 → 3N 20:10